=== PATIENT | male | born 1960 | race Caucasian/White ===

== ENCOUNTER → 2017-09-13 13:39 | Outpatient (POV) | payer MEDICARE, MEDICAID, SELFPAY | PROVIDERS: PCP Internal Medicine Adolescent Medicine; Visit Provider Internal Medicine Nephrology | DX: Z00.00 Encounter for general adult medical examination without abnormal findings (principal) ==

== ENCOUNTER → 2017-12-30 12:46 | Outpatient (POV) | payer MEDICARE, MEDICAID, SELFPAY | PROVIDERS: PCP Internal Medicine Adolescent Medicine; Visit Provider Internal Medicine Nephrology | DX: Z00.00 Encounter for general adult medical examination without abnormal findings (principal) ==

== ENCOUNTER → 2018-03-31 15:34 | Outpatient (POV) | payer MEDICARE, MEDICAID, SELFPAY | PROVIDERS: PCP Internal Medicine Adolescent Medicine; Visit Provider Internal Medicine Nephrology | DX: Z00.00 Encounter for general adult medical examination without abnormal findings (principal) ==

== ENCOUNTER → 2018-07-04 16:18 | Outpatient (CLI) | payer MEDICARE, MEDICAID, SELFPAY ==
--- NOTE | 2018-07-05 11:07 | XR_ITS ---
XR foot wt bearing LT 3V HISTORY: Diabetic ulcers second through fifth toes ITS.REASON: Diabetic Ulcer of Toe ORDERING PHYSICIAN: Meghna Green DPM PATIENT AGE: 57 years COMPARISON: None FINDINGS: There is bandage artifact overlying the third fourth and fifth toes. On the oblique view there is some subtle decreased density at the tuft of the distal phalanx of the third third toe. On the AP view there is decreased density of the tuft of the distal phalanx of the fifth toe. Cannot exclude a possibility of erosive change from osteomyelitis. MRI may be of further value. The bandage artifact also somewhat obscure fine detail in these areas. No fracture or dislocation. No soft tissue gas or other significant anomaly. IMPRESSION: Subtle decreased attenuation at the tuft of the distal phalanx of the fifth toe and third toe. Cannot exclude the possibility of osteomyelitis. MRI may be of further value if clinically warranted
[2018-07-05 12:24] LABS: Basophils # 0.1 K/mm3 (0-0.2); Eosinophils # 0.3 K/mm3 (0.0-0.4); Eosinophils % 3.8 % (0.1-12.0); Hematocrit 37.1 % (42.0-52.0); Hemoglobin 12.4 g/dL (14.1-18.0); Lymphocytes # 2.3 K/mm3 (0.7-4.5); Lymphocytes % 33.2 % (10-50); Mean Corpuscular HGB Conc 33.4 g/dL (31.8-35.4); Mean Corpuscular Volume 83.9 fl (80-94); Mean Platelet Volume 8.3 fl (7.4-10.4); Monocytes # 0.5 K/mm3 (0.1-1.0); Monocytes % 7.3 % (1.7-9.3); Neutrophils # 3.7 K/mm3 (1.8-7.8); Neutrophils % 54.6 % (37.0-80.0); Platelet Count 185 K/mm3 (142-424); Red Blood Count 4.43 M/mm3 (4.60-6.20); Red Cell Distribution Width 13.6 % (11.5-17.5); White Blood Count 6.8 K/mm3 (4.8-10.8)
[2018-07-05 13:14] LABS: Hemoglobin A1C 7.7 % (0.0-7.0)
[2018-07-05 13:16] LABS: Alanine Aminotransferase 31 U/L (12-78); Albumin Level 3.5 gm/dL (3.4-5.0); Albumin/Globulin Ratio 1.1 (1.1-1.8); Alkaline Phosphatase 131 U/L (46-116); Anion Gap 13.3 mEq/L (5-15); Aspartate Amino Transferase 23 U/L (15-37); Bilirubin,Total 0.2 mg/dL (0.2-1.0); Blood Urea Nitrogen 41 mg/dL (7-18); C-Reactive Protein 0.9 mg/L (0.0-0.9); Calcium 8.6 mg/dL (8.5-10.1); Carbon Dioxide 29 mmol/L (21.0-32.0); Chloride 102 mmol/L (98-107); Creatinine,Serum 2.29 mg/dL (0.70-1.30); Estimated Glomerular Filt Rate 29 ml/min (>60); GFR (African American) 36 ML/MIN (>60); Globulin 3.2 gm/dl (1.3-3.2); Glucose 91 mg/dL (74-106); Potassium 4.3 mmoL/L (3.5-5.1); Sodium 140 mmol/L (136-145); Total Protein,Serum 6.7 gm/dL (6.4-8.2)
[2018-07-05 13:53] LABS: Erythrocyte Sedimentation Rate 20 mm/hr (0-20)
== END ==
LOC: LAB 07-06 16:25 → LAB.DROPOF 07-07 08:14 → LAB 07-07 08:15
PROVIDERS: PCP Internal Medicine Adolescent Medicine; Visit Provider Podiatrist
DX: E11.621 Type 2 diabetes mellitus with foot ulcer (principal); L97.529 Non-pressure chronic ulcer of other part of left foot with unspecified severity; L03.90 Cellulitis, unspecified
CPT/HCPCS: 36415; 73630; 80053; 83036; 85025; 85651; 86140; 87070; 87205

== ENCOUNTER → 2018-10-10 12:55 | Outpatient (POV) | payer MEDICARE, MEDICAID, SELFPAY | PROVIDERS: Visit Provider Internal Medicine Nephrology | DX: Z00.00 Encounter for general adult medical examination without abnormal findings (principal) ==

== ENCOUNTER → 2020-08-14 12:44 | Outpatient (CLI) | payer MEDICARE, MEDICAID, SELFPAY ==
--- NOTE | 2020-08-14 12:53 | XR_ITS ---
PROCEDURE: XR FOOT WT BEARING LT 3V CLINICAL INDICATION: diabetic ulcer Diabetic ulcer on the great toe, pain and swelling COMPARISON: CR FTR3 FOOT-RT-3 VIEWS from 06/08/2013 CR FTR3 FOOT-RT-3 VIEWS from 06/12/2013 CR [id number] XR foot wt bearing LT 3V from 07/05/2018 FINDINGS: No fracture or dislocation. No lytic or blastic change. There is normal mineralization. Pes planus with mild osteoarthritic changes of the midfoot. Bandage artifact is present at the great toe. No obvious destructive process evident. Other findings:None. IMPRESSION: As above, no acute finding Dictated by: Rohan Nelson MD 08/14/2020 13:25 Rohan Nelson MD in [place] 08/14/2020 13:25
[2020-08-14 13:34] LABS: Basophils # 0.1 K/mm3 (0-0.2); Basophils % 0.5 % (0.1-2.0); Eosinophils # 0.2 K/mm3 (0.0-0.4); Eosinophils % 1.5 % (0.1-12.0); Hematocrit 35.9 % (42.0-52.0); Hemoglobin 12.7 g/dL (14.1-18.0); Lymphocytes # 1.6 K/mm3 (0.7-4.5); Lymphocytes % 13.8 % (10-50); Mean Corpuscular HGB Conc 35.3 g/dL (31.8-35.4); Mean Corpuscular Hemoglobin 30.5 pg (27.0-31.2); Mean Corpuscular Volume 86.4 fl (80-94); Mean Platelet Volume 9.2 fl (7.4-10.4); Monocytes # 1.2 K/mm3 (0.1-1.0); Monocytes % 10.3 % (1.7-9.3); Neutrophils # 8.3 K/mm3 (1.8-7.8); Neutrophils % 73.8 % (37.0-80.0); Platelet Count 214 K/mm3 (142-424); Red Blood Count 4.16 M/mm3 (4.60-6.20); Red Cell Distribution Width 14.1 % (11.5-17.5); White Blood Count 11.2 K/mm3 (4.8-10.8)
[2020-08-14 14:23] LABS: Chloride 92 mmol/L (98-107); Potassium 3.8 mmoL/L (3.5-5.1); Sodium 129 mmol/L (136-145)
[2020-08-14 14:26] LABS: Alanine Aminotransferase 22 U/L (12-78); Albumin Level 3.7 g/dl (3.5-5.0); Albumin/Globulin Ratio 1.3 (1.1-1.8); Alkaline Phosphatase 103 U/L (38-126); Anion Gap 14.8 mEq/L (5-15); Aspartate Amino Transferase 35 U/L (17-59); Bilirubin,Total 0.6 mg/dl (0.2-1.3); Calcium 8.8 mg/dl (8.4-10.2); Carbon Dioxide 26 mmol/L (22.0-30.0); Estimated Glomerular Filt Rate 17 ml/min (>60); GFR (African American) 21 ML/MIN (>60); Globulin 2.9 g/dL (1.3-3.2); Glucose 206 mg/dl (74-100); Total Protein,Serum 6.6 g/dl (6.3-8.2)
[2020-08-14 14:33] LABS: C-Reactive Protein 262.4 mg/L (0-4)
[2020-08-14 14:38] LABS: Blood Urea Nitrogen 80 mg/dl (9-20)
[2020-08-14 14:52] LABS: Erythrocyte Sedimentation Rate 101 mm/hr (0-20)
== END ==
PROVIDERS: Visit Provider Nurse Practitioner
DX: G62.9 Polyneuropathy, unspecified; E08.621 Diabetes mellitus due to underlying condition with foot ulcer; Z79.4 Long term (current) use of insulin
CPT/HCPCS: 36415; 73630; 80053; 85025; 85651; 86140; 87070; 87077; 87186; 87205

== ENCOUNTER 2020-08-22 12:32 | Inpatient (IN) | payer MEDICARE, OTHER, SELFPAY ==
[2020-08-22] VITALS (20 sets, daily range): BP systolic 100–157; BP diastolic 49–85; PULSE 63–97; RESP 16–18; TEMP 36.3–43; O2SAT 96–100; BMI 34.9
--- NOTE | 2020-08-22 12:44 | PC.NURSE ---
Pt arrived to floor at this time.
--- NOTE | 2020-08-22 12:50 | US_ITS ---
APPROVED REPORT Exam Type: Ankle to Brachial Index Economic Consultant: Elsy Sweeney RCS, RVS Indications Non-healing Ulcer: Risk Factors History of PAD: Right Hypertension TIA/CVA History Diabetes Pressures/Indices Right Indices Left Indices Brachial 156.00 mmHg Brachial 156.00 mmHg Low Thigh 180.00 mmHg 1.15 Low Thigh 170.00 mmHg 1.09 Calf Calf 91.00 mmHg 0.58 Ankle(PT) Ankle(PT) 80.00 mmHg 0.51 Ankle(DP) Ankle(DP) 124.00 mmHg 0.79 Digit Digit 41.00 mmHg 0.26 Findings RT Thigh brachial index=1.15 LT RUY=0.79 Rt BKN LT TPI=0.26 Diminished weakened pulses in Left BUSINESS QUALITY ASSURANCE ANALYST and DPA Conclusion RT Thigh brachial index=1.15 LT RUY=0.79 Rt BKN LT TPI=0.26 Diminished weakened pulses in Left BUSINESS QUALITY ASSURANCE ANALYST and DPA Moderate arterial disease on the left Electronically signed by : Rohan Nelson MD 08/22/2020 18:49:39
--- NOTE | 2020-08-22 12:51 | XR_ITS ---
PROCEDURE: XR FOOT LT MIN 3V CLINICAL INDICATION: LF gas gangrene COMPARISON: CR FTR3 FOOT-RT-3 VIEWS from 06/08/2013 CR FTR3 FOOT-RT-3 VIEWS from 06/12/2013 CR FTWBL3 XR foot wt bearing LT 3V from 07/05/2018 CR XR FOOT WT BEARING LT 3V from 08/14/2020 FINDINGS: No fracture or dislocation. No lytic or blastic change. There is normal mineralization. The joint spaces are well-preserved. No significant degenerative/arthritic changes. No erosive changes evident. Other findings:Soft tissue swelling is present of the great toe. No soft tissue gas identified. No bony erosive change identified. IMPRESSION: Soft tissue swelling otherwise negative Dictated by: Rhoan Nelson MD 08/22/2020 14:46 Rohan Nelson MD in [place] 08/22/2020 14:46
--- NOTE | 2020-08-22 12:52 | XR_ITS ---
PROCEDURE: XR CHEST PORTABLE CLINICAL HISTORY: Pre op Cough COMPARISON: CR CXR CHEST(2 VIEWS-NOT PORTABLE) from 06/14/2013 CR CXR CHEST(2 VIEWS-NOT PORTABLE) from 12/01/2014 FINDINGS: Mild cardiomegaly without failure. Minimal nodularity noted in the right lung base and may be related to summation artifact from the overlying rib and vessel. Upright PA and lateral chest may confirm. The remaining lungs are clear. No acute bony abnormalities. IMPRESSION: Borderline cardiomegaly with nonspecific nodular opacity in the right lung base Dictated by: Rohan Nelson MD 08/22/2020 14:44 Rohan Nelson MD in [place] 08/22/2020 14:44
--- NOTE | 2020-08-22 12:59 | HMH.ORTHOCON ---
*Admission Date: 08/22/20 *Reason for consult:: LLE cellulitis, gas gangrene *History of present illness: Patient is a 59-year-old diabetic male who presented to the podiatry clinic today for follow-up for left great toe ulcer. He states he had the foot Wednesday in restorationist which led to worsening redness and swelling. Patient states he noticed a small several days ago which has worsened. In the office this morning he had a necrotic malodorous toe with ascending cellulitis from the great toe up to the midcalf. Patient last ate this morning at 10 AM. He reports not feeling well . Discussed admission per PCP Dr. Comer and plan for I&D with hallux amputation today. [facility] History I have reviewed the patient's past medical history: Yes Medical History: Reports:: Cerebrovascular Accident, Diabetes Mellitus Type 2, Hypertension *Have you ever received a pneumonia vaccine?: No *Have you received a flu vaccine this season?: No Other Medical History: Reports: Sinus Problems Other Surgeries: Yes: No Previous Surgery, Colonoscopy Amputation: Yes (Right BKA 4 years ago ) Fractures: No - *Social History Smoking Status: Never smoker Alcohol Intake: never Alcohol Intake Frequency:: other Substance Use Type: denies use *Occupational Status:: retired *Travel in the last 8 weeks: None Family Hx:: Diabetes, Heart Attack, Hypertension, Cancer Review of Systems - Review of Systems Review of systems:: pertinent systems reviewed and negative unless documented below - Constitutional Reports fatigue, Reports malaise - Eyes Denies blind spots - ENT Denies abnormal hearing - *Cardiovascular Reports leg swelling, Denies chest pain, Denies shortness of breath - *Respiratory Denies shortness of breath - *Gastrointestinal Reports nausea, Denies abdominal pain - *Genitourinary Denies difficulty urinating - *Musculoskeletal Reports joint swelling - Integumentary/Breasts Reports hair loss, Reports change in skin color, Reports non-healing lesions, Reports skin ulcer - *Neurologic Reports tingling/numbness/burning sensations - Psychiatric Denies behavioral changes - Hematologic/Lymphatic Reports easy bruising - Allergic/Immunologic Reports GI upset with certain foods Meds Home Medications Medication Instructions Recorded Confirmed Type carvedilol 25 mg tablet 25 mg PO BID 07/04/18 08/22/20 History fluticasone propionate 50 1 spray INTRANASAL DAILY 07/04/18 08/22/20 History mcg/actuation nasal spray,suspension furosemide 40 mg tablet 40 mg PO DAILY 07/04/18 08/22/20 History insulin NPH-regular 70-30 U-100 30 unit SQ DAILY ml 07/04/18 08/22/20 History insulin 100 unit/mL subcutaneous pen losartan 100 mg tablet 100 mg PO DAILY 07/04/18 08/22/20 History lovastatin 20 mg tablet 20 mg PO DAILY 07/04/18 08/22/20 History metolazone 2.5 mg tablet 2.5 mg PO DAILY 07/04/18 08/22/20 History phenytoin sodium extended 100 mg 100 mg PO TID 07/04/18 08/22/20 History capsule dapagliflozin 10 mg tablet 10 mg PO DAILY tab 05/22/20 08/22/20 History insulin detemir U-100 100 unit/mL 24 unit SQ HS ml 05/22/20 08/22/20 History (3 mL) subcutaneous pen verapamil 360 mg 24 hr 360 mg PO DAILY cap 05/22/20 08/22/20 History capsule,extended release clindamycin HCl 300 mg capsule 300 mg PO TID 14 Days #42 cap 08/14/20 08/22/20 Rx ciprofloxacin HCl 500 mg tablet 500 mg PO BID 14 Days #28 tab 08/17/20 08/22/20 Rx Aspirin [Aspirin 81mg EC Tab] 81 mg PO DAILY 08/22/20 History Allergies Allergy/AdvReac Type Severity Reaction Status Date / Time No Known Allergies Allergy Verified 08/22/20 11:35 Exam Vital signs and Labs for Last 24 Hours: Temp Pulse Resp BP Pulse Ox 98.7 F 68 18 132/66 98 08/22/20 12:35 08/22/20 12:35 08/22/20 12:35 08/22/20 12:35 08/22/20 12:35 I & O for Last 24 hours: Intake & Output 08/20/20 08/21/20 08/22/20 08/23/20 11:59 11:59 11:59 11:59 Weight 279 lb 4 oz
--- NOTE | 2020-08-22 13:54 | HMH.HP ---
*Admission Date: 08/22/20 *Chief complaint: Toe cellulitis *History of present illness: 59-year-old white male, who suffers from diabetes, vascular disease, chronic kidney disease, stage IV, and previous right below-knee amputation because of foot cellulitis, who has been following with podiatry clinic over the past couple of weeks because of cellulitis of the left great toe. Unfortunately has not responded to outpatient therapy after a minor injury while walking, and he noted yesterday that a blister on the tip of the toe burst which relieved some of his pressure sensations but he had spreading redness. Seen in podiatry clinic today, felt to have gas gangrene into the great toe and is admitted to hospital for IV antibiotics and resection of the great toe. [facility] History I have reviewed the patient's past medical history: Yes Medical History: Reports:: Cerebrovascular Accident, Diabetes Mellitus Type 2, Hypertension, Renal Insufficiency *Have you ever received a pneumonia vaccine?: No *Have you received a flu vaccine this season?: Yes Other Medical History: Reports: Sinus Problems Comment:: Chronic kidney disease, baseline creatinine 2.5-3 Other Surgeries: Yes: No Previous Surgery, Colonoscopy Amputation: Yes (Right BKA 4 years ago ) Fractures: No - *Social History Smoking Status: Never smoker Alcohol Intake: never Alcohol Intake Frequency:: other Substance Use Type: denies use *Occupational Status:: retired *Travel in the last 8 weeks: None Family Hx:: Diabetes, Heart Attack, Hypertension, Cancer Review of Systems - Review of Systems Review of systems:: pertinent systems reviewed and negative unless documented below Denies cardiac or pulmonary symptoms, denies GI symptoms, reports good urine output. - *Neurologic Reports tingling/numbness/burning sensations, Denies abnormal hearing, Denies behavioral changes Meds Home Medications Medication Instructions Recorded Confirmed Type aspirin 325 mg tablet 325 mg PO DAILY 07/04/18 08/22/20 History carvedilol 25 mg tablet 25 mg PO BID 07/04/18 08/22/20 History fluticasone propionate 50 1 spray INTRANASAL DAILY 07/04/18 08/22/20 History mcg/actuation nasal spray,suspension furosemide 40 mg tablet 40 mg PO DAILY 07/04/18 08/22/20 History insulin NPH-regular 70-30 U-100 30 unit SQ DAILY ml 07/04/18 08/22/20 History insulin 100 unit/mL subcutaneous pen losartan 100 mg tablet 100 mg PO DAILY 07/04/18 08/22/20 History lovastatin 20 mg tablet 20 mg PO DAILY 07/04/18 08/22/20 History metolazone 2.5 mg tablet 2.5 mg PO DAILY 07/04/18 08/22/20 History phenytoin sodium extended 100 mg 100 mg PO TID 07/04/18 08/22/20 History capsule polyethylene glycol 3350 17 PO g 07/04/18 08/22/20 History gram/dose oral powder dapagliflozin 10 mg tablet 10 mg PO tab 05/22/20 08/22/20 History insulin detemir U-100 100 unit/mL 24 unit SQ QHS ml 05/22/20 08/22/20 History (3 mL) subcutaneous pen verapamil 360 mg 24 hr 360 mg PO DAILY cap 05/22/20 08/22/20 History capsule,extended release clindamycin HCl 300 mg capsule 300 mg PO TID 14 Days #42 cap 08/14/20 08/22/20 Rx ciprofloxacin HCl 500 mg tablet 500 mg PO BID 14 Days #28 tab 08/17/20 08/22/20 Rx Allergies Allergy/AdvReac Type Severity Reaction Status Date / Time No Known Allergies Allergy Verified 08/22/20 11:35 Exam Vital signs and Labs for Last 24 Hours: Temp Pulse Resp BP Pulse Ox 98.7 F 68 18 132/66 98 08/22/20 12:35 08/22/20 12:35 08/22/20 12:35 08/22/20 12:35 08/22/20 12:35 I & O for Last 24 hours: Intake & Output 08/20/20 08/21/20 08/22/20 08/23/20 11:59 11:59 11:59 11:59 Weight 279 lb 4 oz - *Routine HEENT Exam Head: Present: normocephalic Eye: Present: PERRL, other (Previously noted right lateral exotropia) ENT: Present: mucous membranes moist - *Routine Neck Exam Present: supple. Absent: lymphadenopathy - *Routine Respiratory Exam Present: CTA bilaterally
[2020-08-22 14:08] LABS: Basophils # 0.1 K/mm3 (0-0.2); Basophils % 0.3 % (0.1-2.0); Eosinophils # 0.3 K/mm3 (0.0-0.4); Eosinophils % 1.4 % (0.1-12.0); Hematocrit 35.1 % (42.0-52.0); Hemoglobin 11.9 g/dL (14.1-18.0); Lymphocytes # 1.9 K/mm3 (0.7-4.5); Lymphocytes % 9.3 % (10-50); Mean Corpuscular Hemoglobin 28.5 pg (27.0-31.2); Mean Platelet Volume 8.6 fl (7.4-10.4); Monocytes % 4.8 % (1.7-9.3); Neutrophils # 16.8 K/mm3 (1.8-7.8); Neutrophils % 84.2 % (37.0-80.0); Platelet Count 389 K/mm3 (142-424); Red Blood Count 4.17 M/mm3 (4.60-6.20); Red Cell Distribution Width 13.5 % (11.5-17.5); White Blood Count 19.9 K/mm3 (4.8-10.8)
[2020-08-22 14:10] LABS: MANUAL DIFFERENTIAL MANUAL DIFFERENTIAL (MANUAL DIFF)
[2020-08-22 14:14] LABS: Chloride 96 mmol/L (98-107)
[2020-08-22 14:15] LABS: Potassium 3.6 mmoL/L (3.5-5.1); Sodium 133 mmol/L (136-145)
[2020-08-22 14:17] LABS: Alanine Aminotransferase 92 U/L (12-78); Alkaline Phosphatase 167 U/L (38-126); Aspartate Amino Transferase 82 U/L (17-59); Bilirubin,Total 0.5 mg/dl (0.2-1.3); Creatinine Clearance Estimated 34 mL/min (50-200); Estimated Glomerular Filt Rate 15 ml/min (>60); GFR (African American) 18 ML/MIN (>60)
[2020-08-22 14:18] LABS: Albumin Level 3.9 g/dl (3.5-5.0); Anion Gap 14.6 mEq/L (5-15); Carbon Dioxide 26 mmol/L (22.0-30.0); Glucose 141 mg/dl (74-100); Total Protein,Serum 7.9 g/dl (6.3-8.2)
[2020-08-22 14:20] LABS: Blood Urea Nitrogen 99 mg/dl (9-20)
--- NOTE | 2020-08-22 14:20 | HMH.PHAVTE ---
[facility] Pharmacy VTE Monitoring - Patient Demographics Admission date: 08/22/20 Report Date: 08/22/20 Time: 14:20 Allergies/Adverse Reactions: Patient Allergies No Known Allergies Allergy (Verified 08/22/20 11:35) Height: 1.91 m Weight: 126.666 kg Patient Problems: Current Active Problems Diabetes mellitus with neuropathy (Acute) Cellulitis of left lower extremity (Acute) Gas gangrene (Acute) Diabetic ulcer of left foot associated with diabetes mellitus due to underlying condition, with fat layer exposed (Acute) - VTE Risk Labs: VTE Related Lab Results Hgb 11.9 g/dL (14.1-18.0) L 08/22/20 13:50 Hct 35.1 % (42.0-52.0) L 08/22/20 13:50 Plt Count 389 K/mm3 (142-424) 08/22/20 13:50 Clinical Trial Participant: No - Prophylaxis VTE Prophylaxis Ordered?: Yes Types of VTE Prophylaxis: IPCS Knee High (UNAFFECTED LEG)
[2020-08-22 14:22] LABS: Hemoglobin A1C 9.8 % (4.0-6.0)
--- NOTE | 2020-08-22 14:22 | ECG_ITS ---
APPROVED REPORT Exam: Resting ECG HR:64 bpm ECG Measurements Heart Rate 64 AXES CO 200 P 22 QRSd 102 QRS -34 QT 444 T 18 QTc 458 Conclusion Normal sinus rhythm Left axis deviation Isolated q in iii Poor r wave progression Abnormal ECG Electronically signed by : Preston Elizabeth, 08/23/2020 18:48:37
[2020-08-22 14:25] LABS: Lymphocytes % 10 % (10-50); Monocytes % 7 % (2-9); Neutrophils % 83 % (42-76); Platelet Estimate Normal; RBC Morphology Normal; Total Cells Counted 100
[2020-08-22 14:30] LABS: Coronavirus 19 IgG Antibody Negative (Negative); Coronavirus 19 IgM Antibody Negative (Negative)
[2020-08-22 14:31] LABS: Erythrocyte Sedimentation Rate > 140 mm/hr (0-20)
--- NOTE | 2020-08-22 15:03 | HMH.PHAINT ---
home medication list completed using list from Dr Elizabeth's office and home pharmacy
--- NOTE | 2020-08-22 15:31 | HMH.ANESCL ---
[facility] Anesthesia Checklist - Patient Identification Patient Identification: Arm Band - Structural Data Admitted From: Inpatient Planned Operative Procedure/s: Left Great Toe Amputation + I&D Consent for Planned Operative Procedure(s) Verified: Yes Verified Documents: Surgical Consent, History and Physical - NPO Status Verified Time NPO: 10:00 (clear liquids) - Additional verifications Anesthesia Reactions: No - Airway Assessment C-Spine Mobility Assessed: Yes (mp2) TMJ Mobility Assessed: Yes Dentition: Edentulous - Neurological Assessment Level of Consciousness: Awake, Alert - Anesthesia Plan Anesthesia Risk discussed: Yes Anesthesia Plan: Verified ASA Class: III Anesthesia Type: General [facility] History I have reviewed the patient's past medical history: Yes Medical History: Reports:: Cerebrovascular Accident, Diabetes Mellitus Type 2, Hypertension, Renal Insufficiency *Have you ever received a pneumonia vaccine?: No *Have you received a flu vaccine this season?: Yes Other Medical History: Reports: Sinus Problems Anesthesia experience/problems:: nac Other Surgeries: Yes: Colonoscopy, Other Amputation: Yes (Right BKA 4 years ago ) Fractures: No - *Social History Smoking Status: Never smoker Alcohol Intake: never Alcohol Intake Frequency:: other Substance Use Type: denies use *Occupational Status:: retired *Travel in the last 8 weeks: None Family Hx:: Diabetes, Heart Attack, Hypertension, Cancer
--- NOTE | 2020-08-22 16:33 | HMH.OPNOTE ---
Date of procedure: 08/22/20 Pre-op Diagnosis:: 1. Left foot gas gangrene 2. Left lower extremity cellulitis 3. Left diabetic great toe ulcer 4. PAD 5. Right BKA Post-op Diagnosis:: Same Procedure performed:: 1. Left foot incision and drainage 2. Left hallux amputation 3. Left 1st metatarsal head resection 4. Left foot deep debridement of non-viable soft tissue 5. Left foot derotational skin flap Surgeon:: Meghna Green DPM Anesthesia: GETA, local (30cc 0.5% marcaine plain) Estimated blood loss (mL): 10 Clinical Note:: RE-OP AMPUTATION/INFECTION: Radiographs of the left foot were reviewed and discussed with the patient. X-rays from 08/14/20 show FINDINGS: No fracture or dislocation. No lytic or blastic change. There is normal mineralization. Pes planus with mild osteoarthritic changes of the midfoot. Bandage artifact is present at the great toe. No obvious destructive process evident. IMPRESSION: As above, no acute finding. We discussed conservative versus surgical treatment options. Conservative treatment options include local wound care, oral and IV antibiotics, change in shoe wear, taping/padding, and off-loading. Conservative care not recommended due to the ascending cellulitis malodor and worsening ulcer with necrotic infection. We discussed surgical intervention for amputation of the left great toe and incision and drainage. Patient understands that there is a chance that the toes can migrate to fill the gap or the foot may change shape after surgery. Patient also understands that they could have wound healing complications including delayed healing and infection. We discussed that if the wound does not heal, it is possible that they may need a more proximal amputation and could result in further loss of digits, loss of partial foot or loss of leg. We discussed the risks and benefits in great detail. Other surgical risks include: prolonged pain and swelling, further infection requiring oral or IV antibiotics, delay in healing of soft tissue or bone, nerve or blood vessel damage, CRPS/RSD, DVT, anesthesia complications, and even . All questions answered. Patient verbalized understanding. Consent obtained. PCP is Dr. Elizabeth who will admit the patient. Wound culture, left toe 08/15/20: Serratia marcescens (patient taking Clindamycin 300 mg TID, Cipro 500 mg BID x 14 days Labs, 08/14/20: wbc 11.2, ESR 101, CRP 262.4, creatinine 3.6, gfr 17, glucose 206 Labs, 08/22/20: wbc 19.9, ESR >140, CRP 269, creatinine 4.10, gfr 15, glucose 141, Ha1c 9.8% Operative findings:: Previous right below-knee amputation. Left foot had gangrenous necrotic changes with skin sloughing and malodor. There was a left hallux distal tip diabetic ulcer. Purulent drainage noted. Ascending cellulitis noted over the dorsal aspect of the foot extending from the great toe to the ankle to the medial calf. There was necrotic thayer tissue noted at the level of the joint. The hallux bone was soft and crumbly. Degenerative changes as well as yellowish-brown color changes to the first metatarsal head. Infection tracking up the extensor tendon. Tendon was thayer with purulence and malodor noted. A total of 15 cc of drainage was expressed. Tracking across the dorsal and plantar foot noted. Most of the infection seems to be concentrated around the first MPJ, medial first metatarsal shaft and in the first interspace. Concern for decreased blood flow and infection. Will need more antibiotic, but concern for kidney disease. Operative note:: On this date and time patient was deemed an appropriate surgical candidate. With informed consent signed, the patient was taken to the operating theater. The patient was positioned supine. General anesthesia was induced. No tourniquet used. The left lower extremity was prepped and draped in normal sterile fashion. Pre-op left great toe and forefoot blocks given with 20 cc 0.5% marcaine plain. Left hallux amputation, foot deep debridement of non-v
--- NOTE | 2020-08-22 16:33 | HMH.ANESI ---
[facility] Anesthesia Record Part I Intake, IV Amount: 300 Estimated blood loss (mL): 5 Urine output (mL): 0 Blood Pressure: 120/57 SaO2: 99 Pulse Rate: 66 Respiratory Rate: 16 Temperature: 97.3 F Patient is:: Drowsy, Stable Stable to PACU at:: 16:25
[2020-08-22 16:41] LABS: POC Glucose,Bedside 125 (70-110)
--- NOTE | 2020-08-22 19:40 | PC.NURSE ---
HE IS AOX4, HAS BEEN IN STABLE CONDITION SINCE ARRIVAL TO THE FLOOR, HAS NO C/O PAIN THUS FAR. NO NEEDS AT THIS TIME.
[2020-08-22 22:12] LABS: POC Glucose,Bedside 180 (70-110)
--- NOTE | 2020-08-23 | CA_ITS ---
APPROVED REPORT EXAM: Comprehensive 2D, Doppler, and color-flow Echocardiogram Tool Carrier: Cristel Khoury CRT Ht: 6 ft 4 in Wt: 285lbs BSA: 2.58 BP: 124/58 mmHg Indications: CVA/TIA, Diabetes, Obesity, Hypertension/HDD 2D Dimensions Aortic Root 3.36 cm LVOT 2.10 cm (M/F) 1.5-2.5 M-Mode Dimensions RVDd 2.61 cm (0.9-2.6) LA Diam 4.11 cm (1.9-4.0) LVDd 5.65 cm (3.5-5.7) Ao Diam 4.36 cm (2.0-3.7) LVDs 3.41 cm (3.5-5.7) IVSd 2.11 cm (0.6-1.1) PWd 0.51 cm (0.6-1.1) EF (Teich) 69.50% FS 39.60% EDV (Teich) 156.80 mL ESV (Teich) 47.80 mL LV Diastology E Decel Time 150.00 (160-240 msec) E/A Ratio 0.91 MED E' 6.50 (< 7 cm/sec) MED A' 6.00 cm/s E'/MED E' Ratio 15.74 (>14) LAT E' 8.90 (<10 cm/sec) LAT A' 8.00 cm/s E/LAT E' Ratio 11.49 (>14) Aortic Valve AO Peak GR. 6.10 mmHg Mitral Valve MV E Max Nikolas. 102.00 (40-130 cm/s) MV A Velocity 113.00 (40-130 cm/s) E/A Ratio 0.91 MV Decel. Time 150.00 (160-240 ms) MV PHT 44.00 ms Pulmonary Valve PV Peak Velocity 63.00 (50-150 cm/s) Tricuspid Valve TR P. Velocity 170.00 cm/s RAP Estimate 10.00 mmHg RVSP 21.60 mmHg Left Ventricle Left atrium is mildly enlarged, left ventricle is normal size, mild concentric left ventricular hypertrophy, visually estimated ejection fraction 55% with no regional wall motion abnormality. Diastolic parameters are inconclusive. Right Ventricle Right atrium and right ventricle are normal size and contractility. Aortic Valve Aortic valve is mildly thickened and fibrosed, there is no aortic stenosis or aortic insufficiency. Mitral Valve Mitral valve is grossly normal, there is mild mitral regurgitation. Tricuspid Valve Tricuspid valve is grossly normal, there is mild tricuspid regurgitation. Tricuspid regurgitation jet velocity is inadequate for calculation of the right ventricular systolic pressure. Pulmonic Valve Pulmonic valve is poorly visualized. Great Vessels Aortic root is normal size. Pericardium No significant pericardial effusion noted. Conclusion 1. Mildly enlarged left atrium, normal left ventricular size, mild concentric left ventricular hypertrophy, visually estimated ejection fraction 55% with no regional wall motion abnormality. Diastolic parameters are inconclusive. 2. Mild mitral and tricuspid regurgitation. 3. No significant pericardial effusion noted. Electronically signed by : Dani Berrios, 08/23/2020 16:19:00
[2020-08-23 04:00] VITALS: BP 115/53; PULSE 68; RESP 16; TEMP 36.9; O2SAT 97
[2020-08-23 05:41] VITALS: BMI 36.3
[2020-08-23 06:27] LABS: POC Glucose,Bedside 355 (70-110)
--- NOTE | 2020-08-23 06:44 | PC.NURSE ---
pt is AxOx4, has rested well t/o shift, has had no complaints of pain this shift, left foot remains elevated on pillow, dressing in place, C/D/I
--- NOTE | 2020-08-23 07:16 | P.PN_ITS ---
[facility] Anesthesia Record Part II Discharge Time: 16:51 Destination: Medical Surgical Department PACU nurse assessment reviewed?: Yes Patient Condition:: Good Anesthesia Complications:: None Swallowing reflex intact?: Yes Cyanosis?: No Blood Pressure: 151/79 Pulse Rate: 71 Temperature: 97.8 F Mental Status: Alert & Oriented Pain level:: 0 Nausea and/or vomitting:: None Intake, IV Amount: 0
[2020-08-23 07:17] VITALS: BP 151/79; PULSE 71; TEMP 36.6
--- NOTE | 2020-08-23 07:25 | HMH.ACPN2 ---
Internal Medicine - PN: Subj *Date: 08/23/20 *Time: 09:21 Interval history: Remained stable overnight. Pain very minimal. Tolerated amputation well. Afebrile. Reviewed labs from this morning, unfortunately kidney function is still significantly impaired. Exam Vital signs and Labs for Last 24 Hours: Temp Pulse Resp BP Pulse Ox 97.8 F 71 16 151/79 H 100 08/23/20 07:17 08/23/20 07:17 08/22/20 23:50 08/23/20 07:17 08/22/20 23:50 Laboratory Results - last 24 hr 08/22/20 13:50: WBC 19.9 H, RBC 4.17 L, Hgb 11.9 L, Hct 35.1 L, MCV 84.0, MCH 28.5, MCHC 34.0, RDW 13.5, Plt Count 389, MPV 8.6, Neut % (Auto) 84.2 H, Lymph % (Auto) 9.3 L, [place] % (Auto) 4.8, Eos % (Auto) 1.4, Baso % (Auto) 0.3, Neut # (Auto) 16.8 H, Lymph # (Auto) 1.9, [place] # (Auto) 1.0, Eos # (Auto) 0.3, Baso # (Auto) 0.1, Total Counted 100, Neutrophils % (Manual) 83 H, Lymphocytes % (Manual) 10, Monocytes % (Manual) 7, Platelet Estimate Normal, RBC Morphology Normal, ESR > 140 H 08/22/20 13:50: Sodium 133 L, Potassium 3.6, Chloride 96 L, Carbon Dioxide 26, Anion Gap 14.6, BUN 99 H, Creatinine 4.10 H, Estimated Creat Clear 34, Estimated GFR 15 L*, Est GFR ( Amer) 18 L*, Glucose 141 H, Calcium 9.0, Total Bilirubin 0.5, AST 82 H, ALT 92 H, Alkaline Phosphatase 167 H, C-Reactive Protein 269.0 H, Total Protein 7.9, Albumin 3.9, Globulin 4.0 H, Albumin/Globulin Ratio 1.0 L 08/22/20 13:50: SARS-CoV-2 IgG Ab (Rapid) Negative, SARS-CoV-2 IgM Ab (Rapid) Negative 08/22/20 13:50: Hemoglobin A1c 9.8 H 08/22/20 16:34: POC Glucose 125 H 08/22/20 21:01: POC Glucose 180 H 08/23/20 06:18: POC Glucose 355 H* I & O for Last 24 hours: Intake & Output 08/20/20 08/21/20 08/22/20 08/23/20 23:59 23:59 23:59 23:59 Intake Total 540 / 540 0 / 0 Output Total 800 / 800 Balance -260 / -260 0 / 0 Weight 126.666 kg 132.619 kg Microbiology Reports for the Last 24 Hours: Microbiology 08/22/20 15:15 Toe,Left Great Gram Stain - Final Narrative: - *Routine HEENT Exam Head: Present: normocephalic Eye: Present: PERRL, other (Previously noted right lateral exotropia) ENT: Present: mucous membranes moist - *Routine Neck Exam Present: supple. Absent: lymphadenopathy - *Routine Respiratory Exam Present: CTA bilaterally - *Routine Cardiovascular Exam Present: RRR - *Routine Abdominal Exam Present: soft, normoactive bowel sounds. Absent: tenderness - *Routine Extremities Exam Present: edema. Absent: cyanosis Comments: Right BKA noted, left foot in post surgical dressing. Leading edge or erythema was marked on leg with marker, has receded at this time - *Routine Skin Exam Present: warm. Absent: rash - *Routine Neurological Exam Present: alert, oriented X3 Assessment and Plan (1) Diabetes mellitus with neuropathy Status: Acute Category: Medical Code(s): E11.40 - Type 2 diabetes mellitus with diabetic neuropathy, unspecified (2) Cellulitis of left lower extremity Status: Acute Category: Medical Code(s): L03.116 - Cellulitis of left lower limb (3) Diabetic ulcer of left foot associated with diabetes mellitus due to underlying condition, with fat layer exposed Status: Acute Qualifiers: Diabetic foot ulcer location: toe Qualified Code(s): E08.621 - Diabetes mellitus due to underlying condition with foot ulcer; L97.522 - Non-pressure chronic ulcer of other part of left foot with fat layer exposed Category: Medical Code(s): E08.621 - Diabetes mellitus due to underlying condition with foot ulcer; L97.522 - Non-pressure chronic ulcer of other part of left foot with fat layer exposed (4) Gas gangrene Status: Acute Category: Medical Code(s): A48.0 - Gas gangrene (5) Acute on chronic kidney failure Status: Acute Qualifiers: Chronic kidney disease stage: stage 4 (severe) Category: Medical Code(s): N17.9 - Acute kidney failure, unspecified; N18.9 - Chronic kidney disease, unspecified (6) Obesity,
[2020-08-23 08:00] VITALS: BP 124/58; PULSE 69; RESP 18; TEMP 36.8; O2SAT 98
[2020-08-23 08:01] LABS: Basophils # 0.1 K/mm3 (0-0.2); Basophils % 0.3 % (0.1-2.0); Eosinophils # 0.1 K/mm3 (0.0-0.4); Eosinophils % 0.5 % (0.1-12.0); Hematocrit 30.3 % (42.0-52.0); Lymphocytes # 1.5 K/mm3 (0.7-4.5); Lymphocytes % 7.8 % (10-50); Mean Corpuscular HGB Conc 33.4 g/dL (31.8-35.4); Mean Corpuscular Volume 86.7 fl (80-94); Mean Platelet Volume 8.6 fl (7.4-10.4); Monocytes # 0.8 K/mm3 (0.1-1.0); Monocytes % 3.8 % (1.7-9.3); Neutrophils # 17.4 K/mm3 (1.8-7.8); Neutrophils % 87.6 % (37.0-80.0); Platelet Count 303 K/mm3 (142-424); Red Cell Distribution Width 13.8 % (11.5-17.5); White Blood Count 19.8 K/mm3 (4.8-10.8)
[2020-08-23 08:04] LABS: MANUAL DIFFERENTIAL MANUAL DIFFERENTIAL (MANUAL DIFF)
[2020-08-23 08:10] LABS: Anion Gap 16.7 mEq/L (5-15); Calcium 8.2 mg/dl (8.4-10.2); Carbon Dioxide 24 mmol/L (22.0-30.0); Chloride 95 mmol/L (98-107); Creatinine Clearance Estimated 29 mL/min (50-200); Estimated Glomerular Filt Rate 12 ml/min (>60); GFR (African American) 14 ML/MIN (>60); Glucose 316 mg/dl (74-100); Potassium 3.7 mmoL/L (3.5-5.1); Sodium 132 mmol/L (136-145)
[2020-08-23 08:18] LABS: Blood Urea Nitrogen 106 mg/dl (9-20)
--- NOTE | 2020-08-23 08:23 | PC.NURSE ---
reported bun and creatnine to
[2020-08-23 08:48] LABS: Erythrocyte Sedimentation Rate > 140 mm/hr (0-20)
[2020-08-23 08:55] LABS: C-Reactive Protein 282.3 mg/L (0-4)
[2020-08-23 09:52] LABS: Lymphocytes % 4 % (10-50); Monocytes % 4 % (2-9); Neutrophils % 92 % (42-76); Platelet Estimate Normal; RBC Morphology Normal; Total Cells Counted 100
[2020-08-23 09:56] LABS: Hemoglobin 10.1 g/dL (14.1-18.0)
--- NOTE | 2020-08-23 10:05 | HMH.CNCARD ---
History of Present Illness Consult date: 08/23/20 Requesting physician: Sanchez Campbell Chief complaint: Cellulitis of the lower left leg Additional Medical History:: 1. Cellulitis of the left lower leg (08/23/20) 2. Abnormal RUY (08/23/20) 3. Uncontrolled diabetes (08/23/20) 4. Peripheral artery disease (08/23/20) a. Abnormal RUY 5. Renal failure (08/23/20) a. Creatinine 5 6. Below the knee amputation Right History of present illness: 59-year-old male admitted to [facility] for cellulitis of the left lower extremity. Cardiology was consulted due to abnormal RUY and perform possible runoff today. Patient did undergo amputation of the left great toe yesterday due to gangrene. Management of this per Dr. Bautista. Patient denies chest pain, tightness or pressure. Patient denies shortness of breath. Swelling noted of the lower extremity. Left foot does have dressing dry and intact. Denies fever. Patient states for 1 week he had been having a low-grade fever at home. Upon admission labs were noted with a creatinine of 4.30. Patient stated that he does have renal failure. Patient states he has been seen by nephrology in [place] but has not seen the skoog machine operator for 1 to 2 years. Patient does seem noncompliant. Patient does have small amounts of urine output. Patient has history of CVA 5 to 6 years ago. No known coronary artery disease or lung disease. Discussed plan of care with Dr. Arroyo and Dr. Morrison. Will defer performing a left lower leg runoff due to elevated creatinine level. Patient is currently receiving antibiotics and this may be increasing his creatinine at this time. Will have patient follow-up in the office in 1 week for evaluation and possibly scheduling runoff at that time. Thank you for letting cardiology participate in the care of this patient. [facility] History I have reviewed the patient's past medical history: Yes Medical History: Reports:: Cerebrovascular Accident, Diabetes Mellitus Type 2, Hypertension, Renal Insufficiency Denies:: Cancer, MRSA *Have you ever received a pneumonia vaccine?: Yes *Have you received a flu vaccine this season?: No Other Medical History: Reports: Sinus Problems Anesthesia experience/problems:: nac Other Surgeries: Yes: No Previous Surgery, Colonoscopy, Other Amputation: Yes (Right BKA 4 years ago ) Fractures: No - *Social History Last grade of school completed: Some college Smoking Status: Never smoker Alcohol Intake: never Alcohol Intake Frequency:: other Substance Use Type: denies use *Occupational Status:: retired Housing: house *Travel in the last 8 weeks: None Family Hx:: Cancer Meds Home Medications Medication Instructions Recorded Confirmed Type carvedilol 25 mg tablet 25 mg PO BID 07/04/18 08/22/20 History fluticasone propionate 50 1 spray INTRANASAL DAILY 07/04/18 08/22/20 History mcg/actuation nasal spray,suspension furosemide 40 mg tablet 40 mg PO DAILY 07/04/18 08/22/20 History losartan 100 mg tablet 100 mg PO DAILY 07/04/18 08/22/20 History lovastatin 20 mg tablet 20 mg PO DAILY 07/04/18 08/22/20 History metolazone 2.5 mg tablet 2.5 mg PO DAILY 07/04/18 08/22/20 History phenytoin sodium extended 100 mg 100 mg PO TID 07/04/18 08/22/20 History capsule dapagliflozin 10 mg tablet 10 mg PO DAILY tab 05/22/20 08/22/20 History insulin detemir U-100 100 unit/mL 24 unit SQ HS ml 05/22/20 08/22/20 History (3 mL) subcutaneous pen verapamil 360 mg 24 hr 360 mg PO DAILY cap 05/22/20 08/22/20 History capsule,extended release clindamycin HCl 300 mg capsule 300 mg PO TID 14 Days #42 cap 08/14/20 08/22/20 Rx ciprofloxacin HCl 500 mg tablet 500 mg PO BID 14 Days #28 tab 08/17/20 08/22/20 Rx Aspirin [Aspirin 81mg EC Tab] 81 mg PO DAILY 08/22/20 08/22/20 History Allergies Allergy/AdvReac Type Severity Reaction Status Date / Time No Known Allergies Allergy Verified 08/22/20 11:35 Exam Vital signs and Labs for Last 24 Jaime
--- NOTE | 2020-08-23 10:13 | HMH.ORTHPN ---
Subjective Date: 08/23/20 Time: 09:30 Principal diagnosis: LLE cellulitis, gas gangrene Interval history: Patient is resting comfortably in the recliner bedside. He reports feeling much better than yesterday last week . He denies N/V, F/C. Patient reports no pain to the left foot. PN: Obj Ex Vital signs: Temp Pulse Resp BP Pulse Ox 98.3 F 69 18 124/58 L 98 08/23/20 08:00 08/23/20 08:00 08/23/20 08:00 08/23/20 08:00 08/23/20 08:00 - Constitutional no acute distress - Routine HEENT Exam Head: Present: normocephalic - Routine Neck Exam Present: supple - Routine Respiratory Exam Absent: respiratory distress - Routine Cardiovascular Exam Present: RRR - Routine Abdominal Exam Present: soft, obese - Routine Extremities Exam Present: edema, amputation (R BKA, L hallux, met head ) - Detailed Lower Extremity Exam Top foot image: 1 - Left foot edema and erythema has greatly improved from yesterday. There are sutures noted to the dorsal and medial left foot. Area noted over the dorsal first MPJ and medial foot open to drain. No purulence expressed. Foot was flushed with saline at the bedside and explored. No evidence of deep infection or purulent pocket noted. Mild pain over the first distal interspace with palpation. No pain over the amputation site. CFT delayed and pulses are weakly palpable. Motor function and light touch sensation at baseline. No calf or thigh pain noted bilaterally. - Routine Skin Exam Present: erythema (improved to LLE), dry, wounds. Absent: gangrene - Routine Psychiatric Exam Present: normal affect Progress Note: A&P (1) Diabetes mellitus with neuropathy Status: Acute (2) Cellulitis of left lower extremity Status: Acute (3) Diabetic ulcer of left foot associated with diabetes mellitus due to underlying condition, with fat layer exposed Status: Acute (4) Gas gangrene Status: Acute (5) Acute on chronic kidney failure Status: Acute (6) Obesity, Class II, BMI 35-39.9 Status: Chronic Assessment and Plan for All Diagnoses:: Sx: 08/22/20, S/p foot I&D, hallux amputation, 1st metatarsal head resection, deep foot debridement of non-viable soft tissue, foot derotational skin flap POD # 1 Wound culture, left toe 08/15/20: Serratia marcescens (patient taking Clindamycin 300 mg TID, Cipro 500 mg BID x 14 days Labs, 08/14/20: wbc 11.2, ESR 101, CRP 262.4, creatinine 3.6, gfr 17, glucose 206 Labs, 08/22/20: wbc 19.9, ESR >140, CRP 269, creatinine 4.10, gfr 15, glucose 141, Ha1c 9.8% Labs, 08/23/20: wbc 19.8, ESR >140, CRP 283, creatinine 5.0, gfr 12, bun 106, glucose 316 For all the edema and erythema to the left foot extremity has dramatically improved from yesterday. There is some erythema over the first MPJ dorsally. Sutures are clean dry and intact. Overall the skin is macerated to the incision site. There are 2 openings noted. Wound flushed with saline. It was explored with pickups, hemostat and no purulent pockets is noted. No malodor noted. No necrotic or gangrenous tissue noted. The proximal aspect of the dorsal incision was a little dusky but no gangrene. Betadine soaked quarter inch iodoform packing inserted to the 2 openings. Betadine soaked 4x4's, dry gauze, venu/kerlix and Tu was applied to the left foot. Discussed plan of care with Cardiology: Dr. Arroyo and Danielle. Patient ABIs were abnormal and he has decreased below knee and PT flow. I do think he is getting some collateralization via the DP. Would recommend revascular in future. I do not think he is urgent critical limb ischemia PAD. If contrast will be utilized for revascularization, I'd prob recommend holding off until kidneys improve. The infection clinically appears much better but concerned if he is not on the next antibiotics then it could worsen and he is high risk due to the diabetes, PAD, CKD, no
--- NOTE | 2020-08-23 11:00 | HMH.PHACONS ---
- Pharmacy Consult Date: 08/23/20 Time: 11:00 Referring provider: DR. SHELBY Reason for Consult:: VANCOMYCIN DOSING Allergies and ADEs:: Allergies Allergy/AdvReac Type Severity Reaction Status Date / Time No Known Allergies Allergy Verified 08/22/20 11:35 Home Medications:: Home Medications Medication Instructions Recorded Confirmed Type carvedilol 25 mg tablet 25 mg PO BID 07/04/18 08/22/20 History fluticasone propionate 50 1 spray INTRANASAL DAILY 07/04/18 08/22/20 History mcg/actuation nasal spray,suspension furosemide 40 mg tablet 40 mg PO DAILY 07/04/18 08/22/20 History losartan 100 mg tablet 100 mg PO DAILY 07/04/18 08/22/20 History lovastatin 20 mg tablet 20 mg PO DAILY 07/04/18 08/22/20 History metolazone 2.5 mg tablet 2.5 mg PO DAILY 07/04/18 08/22/20 History phenytoin sodium extended 100 mg 100 mg PO TID 07/04/18 08/22/20 History capsule dapagliflozin 10 mg tablet 10 mg PO DAILY tab 05/22/20 08/22/20 History insulin detemir U-100 100 unit/mL 24 unit SQ HS ml 05/22/20 08/22/20 History (3 mL) subcutaneous pen verapamil 360 mg 24 hr 360 mg PO DAILY cap 05/22/20 08/22/20 History capsule,extended release clindamycin HCl 300 mg capsule 300 mg PO TID 14 Days #42 cap 08/14/20 08/22/20 Rx ciprofloxacin HCl 500 mg tablet 500 mg PO BID 14 Days #28 tab 08/17/20 08/22/20 Rx Aspirin [Aspirin 81mg EC Tab] 81 mg PO DAILY 08/22/20 08/22/20 History Height: 1.91 m Weight: 132.619 kg Laboratory Results:: Laboratory Results - last 24 hr 08/22/20 13:50: WBC 19.9 H, RBC 4.17 L, Hgb 11.9 L, Hct 35.1 L, MCV 84.0, MCH 28.5, MCHC 34.0, RDW 13.5, Plt Count 389, MPV 8.6, Neut % (Auto) 84.2 H, Lymph % (Auto) 9.3 L, [place] % (Auto) 4.8, Eos % (Auto) 1.4, Baso % (Auto) 0.3, Neut # (Auto) 16.8 H, Lymph # (Auto) 1.9, [place] # (Auto) 1.0, Eos # (Auto) 0.3, Baso # (Auto) 0.1, Total Counted 100, Neutrophils % (Manual) 83 H, Lymphocytes % (Manual) 10, Monocytes % (Manual) 7, Platelet Estimate Normal, RBC Morphology Normal, ESR > 140 H 08/22/20 13:50: Sodium 133 L, Potassium 3.6, Chloride 96 L, Carbon Dioxide 26, Anion Gap 14.6, BUN 99 H, Creatinine 4.10 H, Estimated Creat Clear 34, Estimated GFR 15 L*, Est GFR ( Amer) 18 L*, Glucose 141 H, Calcium 9.0, Total Bilirubin 0.5, AST 82 H, ALT 92 H, Alkaline Phosphatase 167 H, C-Reactive Protein 269.0 H, Total Protein 7.9, Albumin 3.9, Globulin 4.0 H, Albumin/Globulin Ratio 1.0 L 08/22/20 13:50: SARS-CoV-2 IgG Ab (Rapid) Negative, SARS-CoV-2 IgM Ab (Rapid) Negative 08/22/20 13:50: Hemoglobin A1c 9.8 H 08/22/20 16:34: POC Glucose 125 H 08/22/20 21:01: POC Glucose 180 H 08/23/20 06:18: POC Glucose 355 H* 08/23/20 07:24: WBC 19.8 H, RBC 3.50 L, Hgb 10.1 L D, Hct 30.3 L, MCV 86.7, MCH 29.0, MCHC 33.4, RDW 13.8, Plt Count 303, MPV 8.6, Neut % (Auto) 87.6 H, Lymph % (Auto) 7.8 L, [place] % (Auto) 3.8, Eos % (Auto) 0.5, Baso % (Auto) 0.3, Neut # (Auto) 17.4 H, Lymph # (Auto) 1.5, [place] # (Auto) 0.8, Eos # (Auto) 0.1, Baso # (Auto) 0.1, Total Counted 100, Neutrophils % (Manual) 92 H, Lymphocytes % (Manual) 4 L, Monocytes % (Manual) 4, Platelet Estimate Normal, RBC Morphology Normal 08/23/20 07:24: Sodium 132 L, Potassium 3.7, Chloride 95 L, Carbon Dioxide 24, Anion Gap 16.7 H, BUN 106 H*, Creatinine 5.00 H D, Estimated Creat Clear 29, Estimated GFR 12 L*, Est GFR ( Amer) 14 L* D, Glucose 316 H D, Calcium 8.2 L 08/23/20 07:24: ESR > 140 H 08/23/20 07:24: C-Reactive Protein 282.3 H Medical History: Reports:: Cerebrovascular Accident, Diabetes Mellitus Type 2, Hypertension, Renal Insufficiency Denies:: Cancer, MRSA Assessment and Plan (1) Diabetes mellitus with neuropathy Status: Acute Category: Medical Code(s): E11.40 - Type 2 diabetes mellitus with diabetic neuropathy, unspecified (2) Cellulitis of left lower extremity Status: Acute Category: Medical Code(s): L03.116 - Cellulitis of left lower limb (3) Diabetic ulcer of left foot associated with diabetes mellitus due to und
[2020-08-23 12:00] VITALS: BP 145/59; PULSE 60; RESP 18; TEMP 36.4; O2SAT 95
[2020-08-23 12:07] LABS: POC Glucose,Bedside 264 (70-110)
[2020-08-23 16:00] VITALS: BP 122/48; PULSE 63; RESP 18; TEMP 36.9; O2SAT 99
[2020-08-23 16:38] LABS: Chloride 96 mmol/L (98-107); Potassium 3.5 mmoL/L (3.5-5.1); Sodium 132 mmol/L (136-145)
[2020-08-23 16:41] LABS: Anion Gap 15.5 mEq/L (5-15); Carbon Dioxide 24 mmol/L (22.0-30.0); Creatinine Clearance Estimated 30 mL/min (50-200); Estimated Glomerular Filt Rate 12 ml/min (>60); GFR (African American) 15 ML/MIN (>60)
[2020-08-23 16:42] LABS: Calcium 8.1 mg/dl (8.4-10.2); Glucose 263 mg/dl (74-100)
[2020-08-23 16:48] LABS: Blood Urea Nitrogen 107 mg/dl (9-20)
--- NOTE | 2020-08-23 17:31 | PC.NURSE ---
dr. fontanez ordered bolus on patient will not allow us to scan in sep. will give a 250ml/hr for 2 hours to make a 500ml bolus. once done per dr dunn switch lr to 125ml/hr. and get a bmp in morning. both are aware of creatnine and bun
[2020-08-23 18:50] LABS: POC Glucose,Bedside 255 (70-110)
--- NOTE | 2020-08-23 19:39 | PC.NURSE ---
PATIENT HAS HAD A GOOD DAY. HAS HAD NO COMPLAINTS AT ALL THIS SHIFT. HAS SAT UP IN THE CHAIR. VITALS HAVE BEEN STABLE. NO NEED TO REINFORCE DRESSING OF NOW.
[2020-08-23 20:00] VITALS: BP 124/60; PULSE 63; RESP 20; TEMP 36.4; O2SAT 96
[2020-08-23 20:49] LABS: POC Glucose,Bedside 278 (70-110)
[2020-08-24] VITALS: BP 124/58; PULSE 60; RESP 20; TEMP 36.9; O2SAT 98
[2020-08-24 04:00] VITALS: BP 131/68; PULSE 61; RESP 20; TEMP 36.7; O2SAT 98
[2020-08-24 05:25] LABS: POC Glucose,Bedside 238 (70-110)
[2020-08-24 05:53] VITALS: BMI 35.7
--- NOTE | 2020-08-24 05:58 | PC.NURSE ---
PT HAS SLEPT OFF AND ON THROUGHTOUT THE NIGHT,NOT REQUIRED ANY PAIN MEDICINES THIS SHIFT,NO DRAINAGE TO DRESSING ON LEFT FOOT FROM AMPUTATION OF GREAT TOE,PT CONTINUES TO GET SEVERAL ANTIBIOTICS.FLUIDS WHERE DISCONTINUED,PT SALINE LOCKED.PT URINE THIS MORNING IN URINAL WAS MORE YELLOW AND CLEAR,NOT DARK,FSBS THIS AM WAS 238,WILL GIVE 4 UNITS HUMALOG
[2020-08-24 07:10] LABS: Basophils # 0.1 K/mm3 (0-0.2); Basophils % 0.5 % (0.1-2.0); Eosinophils # 0.4 K/mm3 (0.0-0.4); Eosinophils % 2.7 % (0.1-12.0); Hematocrit 29.8 % (42.0-52.0); Hemoglobin 10.3 g/dL (14.1-18.0); Lymphocytes # 1.6 K/mm3 (0.7-4.5); Lymphocytes % 11.8 % (10-50); Mean Corpuscular HGB Conc 34.4 g/dL (31.8-35.4); Mean Corpuscular Hemoglobin 29.3 pg (27.0-31.2); Mean Corpuscular Volume 85.1 fl (80-94); Mean Platelet Volume 8.2 fl (7.4-10.4); Monocytes # 0.6 K/mm3 (0.1-1.0); Monocytes % 4.3 % (1.7-9.3); Neutrophils # 11.2 K/mm3 (1.8-7.8); Neutrophils % 80.7 % (37.0-80.0); Platelet Count 313 K/mm3 (142-424); Red Cell Distribution Width 13.6 % (11.5-17.5); White Blood Count 13.9 K/mm3 (4.8-10.8)
[2020-08-24 07:38] LABS: Alanine Aminotransferase 73 U/L (12-78); Albumin/Globulin Ratio 0.8 (1.1-1.8); Alkaline Phosphatase 184 U/L (38-126); Anion Gap 17.7 mEq/L (5-15); Aspartate Amino Transferase 59 U/L (17-59); Bilirubin,Total 0.5 mg/dl (0.2-1.3); Calcium 8.3 mg/dl (8.4-10.2); Carbon Dioxide 23 mmol/L (22.0-30.0); Chloride 95 mmol/L (98-107); Creatinine Clearance Estimated 35 mL/min (50-200); Estimated Glomerular Filt Rate 15 ml/min (>60); GFR (African American) 18 ML/MIN (>60); Globulin 3.6 g/dL (1.3-3.2); Glucose 283 mg/dl (74-100); Potassium 3.7 mmoL/L (3.5-5.1); Sodium 132 mmol/L (136-145); Total Protein,Serum 6.6 g/dl (6.3-8.2)
[2020-08-24 08:00] VITALS: BP 152/70; PULSE 66; RESP 19; TEMP 36.5; O2SAT 97
[2020-08-24 08:06] LABS: Blood Urea Nitrogen 102 mg/dl (9-20)
--- NOTE | 2020-08-24 08:29 | HMH.ACPN2 ---
Internal Medicine - PN: Subj *Date: 08/24/20 *Time: 08:29 Interval history: Patient reports that he is feeling better, drinking better, urine output is clearer. He also tells me that in the week before surgery he was at home with a fever and his p.o. intake was severely limited. Exam Vital signs and Labs for Last 24 Hours: Temp Pulse Resp BP Pulse Ox 97.7 F 66 19 152/70 H 97 08/24/20 08:00 08/24/20 08:00 08/24/20 08:00 08/24/20 08:00 08/24/20 08:00 Laboratory Results - last 24 hr 08/23/20 07:24: Hgb 10.1 L D, Total Counted 100, Neutrophils % (Manual) 92 H, Lymphocytes % (Manual) 4 L, Monocytes % (Manual) 4, Platelet Estimate Normal, RBC Morphology Normal 08/23/20 07:24: ESR > 140 H 08/23/20 07:24: C-Reactive Protein 282.3 H 08/23/20 11:23: POC Glucose 264 H 08/23/20 16:23: Sodium 132 L, Potassium 3.5, Chloride 96 L, Carbon Dioxide 24, Anion Gap 15.5 H, BUN 107 H*, Creatinine 4.90 H, Estimated Creat Clear 30, Estimated GFR 12 L*, Est GFR ( Amer) 15 L*, Glucose 263 H, Calcium 8.1 L 08/23/20 17:08: POC Glucose 255 H 08/23/20 20:38: POC Glucose 278 H 08/24/20 05:13: POC Glucose 238 H 08/24/20 06:20: WBC 13.9 H D, RBC 3.50 L, Hgb 10.3 L, Hct 29.8 L, MCV 85.1, MCH 29.3, MCHC 34.4, RDW 13.6, Plt Count 313, MPV 8.2, Neut % (Auto) 80.7 H, Lymph % (Auto) 11.8, [place] % (Auto) 4.3, Eos % (Auto) 2.7, Baso % (Auto) 0.5, Neut # (Auto) 11.2 H, Lymph # (Auto) 1.6, [place] # (Auto) 0.6, Eos # (Auto) 0.4, Baso # (Auto) 0.1 08/24/20 06:20: Sodium 132 L, Potassium 3.7, Chloride 95 L, Carbon Dioxide 23, Anion Gap 17.7 H, BUN 102 H*, Creatinine 4.10 H, Estimated Creat Clear 35, Estimated GFR 15 L*, Est GFR ( Amer) 18 L*, Glucose 283 H, Calcium 8.3 L, Magnesium 2.0, Total Bilirubin 0.5, AST 59 D, ALT 73, Alkaline Phosphatase 184 H, Total Protein 6.6, Albumin 3.0 L, Globulin 3.6 H, Albumin/Globulin Ratio 0.8 L I & O for Last 24 hours: Intake & Output 08/21/20 08/22/20 08/23/20 08/24/20 11:59 11:59 11:59 11:59 Intake Total 960 / 960 1794 / 1794 Output Total 1000 / 1000 4050 / 4050 Balance -40 / -40 -2256 / -2256 Weight 292 lb 6 oz 287 lb 9 oz Microbiology Reports for the Last 24 Hours: Microbiology 08/22/20 15:15 Toe,Left Great Gram Stain - Final 08/22/20 15:15 Toe,Left Great Abscess Culture - Preliminary 08/22/20 15:15 Toe,Left Great Surgical Biopsy Culture - Preliminary Gram Negative Rods 08/22/20 15:15 Toe,Left Great Surgical Biopsy Culture - Preliminary Narrative: Pleasant, talkative, heart rate regular, lungs clear, abdomen soft. Oropharynx clear, neurologic exam intact, extremity exam noted per podiatry Assessment and Plan (1) Diabetes mellitus with neuropathy Status: Acute Category: Medical Code(s): E11.40 - Type 2 diabetes mellitus with diabetic neuropathy, unspecified (2) Cellulitis of left lower extremity Status: Acute Category: Medical Code(s): L03.116 - Cellulitis of left lower limb (3) Diabetic ulcer of left foot associated with diabetes mellitus due to underlying condition, with fat layer exposed Status: Acute Qualifiers: Diabetic foot ulcer location: toe Qualified Code(s): E08.621 - Diabetes mellitus due to underlying condition with foot ulcer; L97.522 - Non-pressure chronic ulcer of other part of left foot with fat layer exposed Category: Medical Code(s): E08.621 - Diabetes mellitus due to underlying condition with foot ulcer; L97.522 - Non-pressure chronic ulcer of other part of left foot with fat layer exposed (4) Gas gangrene Status: Acute Category: Medical Code(s): A48.0 - Gas gangrene (5) Acute on chronic kidney failure Status: Acute Qualifiers: Chronic kidney disease stage: stage 4 (severe) Category: Medical Code(s): N17.9 - Acute kidney failure, unspecified; N18.9 - Chronic kidney disease, unspecified (6) Obesity, Class II, BMI 35-39.9 Status: Chronic Category: Medical Code(s):
[2020-08-24 11:35] LABS: POC Glucose,Bedside 400 (70-110)
[2020-08-24 12:00] VITALS: BP 152/75; PULSE 59; RESP 20; TEMP 36.8; O2SAT 99
[2020-08-24 15:05] LABS: Vancomycin,Trough 11.8 ug/mL (5.0-10.0)
[2020-08-24 16:00] VITALS: BP 137/77; PULSE 73; RESP 16; TEMP 36.7; O2SAT 98
--- NOTE | 2020-08-24 16:11 | HMH.PHACONS ---
- Pharmacy Consult Date: 08/24/20 Time: 16:11 Referring provider: DR. SHELBY Reason for Consult:: VANCOMYCIN TROUGH LEVEL Allergies and ADEs:: Allergies Allergy/AdvReac Type Severity Reaction Status Date / Time No Known Allergies Allergy Verified 08/22/20 11:35 Home Medications:: Home Medications Medication Instructions Recorded Confirmed Type carvedilol 25 mg tablet 25 mg PO BID 07/04/18 08/22/20 History fluticasone propionate 50 1 spray INTRANASAL DAILY 07/04/18 08/22/20 History mcg/actuation nasal spray,suspension furosemide 40 mg tablet 40 mg PO DAILY 07/04/18 08/22/20 History losartan 100 mg tablet 100 mg PO DAILY 07/04/18 08/22/20 History lovastatin 20 mg tablet 20 mg PO DAILY 07/04/18 08/22/20 History metolazone 2.5 mg tablet 2.5 mg PO DAILY 07/04/18 08/22/20 History phenytoin sodium extended 100 mg 100 mg PO TID 07/04/18 08/22/20 History capsule dapagliflozin 10 mg tablet 10 mg PO DAILY tab 05/22/20 08/22/20 History insulin detemir U-100 100 unit/mL 24 unit SQ HS ml 05/22/20 08/22/20 History (3 mL) subcutaneous pen verapamil 360 mg 24 hr 360 mg PO DAILY cap 05/22/20 08/22/20 History capsule,extended release clindamycin HCl 300 mg capsule 300 mg PO TID 14 Days #42 cap 08/14/20 08/22/20 Rx ciprofloxacin HCl 500 mg tablet 500 mg PO BID 14 Days #28 tab 08/17/20 08/22/20 Rx Aspirin [Aspirin 81mg EC Tab] 81 mg PO DAILY 08/22/20 08/22/20 History Height: 1.91 m Weight: 130.436 kg Laboratory Results:: Laboratory Results - last 24 hr 08/23/20 16:23: Sodium 132 L, Potassium 3.5, Chloride 96 L, Carbon Dioxide 24, Anion Gap 15.5 H, BUN 107 H*, Creatinine 4.90 H, Estimated Creat Clear 30, Estimated GFR 12 L*, Est GFR ( Amer) 15 L*, Glucose 263 H, Calcium 8.1 L 08/23/20 17:08: POC Glucose 255 H 08/23/20 20:38: POC Glucose 278 H 08/24/20 05:13: POC Glucose 238 H 08/24/20 06:20: WBC 13.9 H D, RBC 3.50 L, Hgb 10.3 L, Hct 29.8 L, MCV 85.1, MCH 29.3, MCHC 34.4, RDW 13.6, Plt Count 313, MPV 8.2, Neut % (Auto) 80.7 H, Lymph % (Auto) 11.8, Gove % (Auto) 4.3, Eos % (Auto) 2.7, Baso % (Auto) 0.5, Neut # (Auto) 11.2 H, Lymph # (Auto) 1.6, Gove # (Auto) 0.6, Eos # (Auto) 0.4, Baso # (Auto) 0.1 08/24/20 06:20: Sodium 132 L, Potassium 3.7, Chloride 95 L, Carbon Dioxide 23, Anion Gap 17.7 H, BUN 102 H*, Creatinine 4.10 H, Estimated Creat Clear 35, Estimated GFR 15 L*, Est GFR ( Amer) 18 L*, Glucose 283 H, Calcium 8.3 L, Magnesium 2.0, Total Bilirubin 0.5, AST 59 D, ALT 73, Alkaline Phosphatase 184 H, Total Protein 6.6, Albumin 3.0 L, Globulin 3.6 H, Albumin/Globulin Ratio 0.8 L 08/24/20 11:24: POC Glucose 400 H* 08/24/20 14:19: Vancomycin Trough 11.8 H Medical History: Reports:: Cerebrovascular Accident, Diabetes Mellitus Type 2, Hypertension, Renal Insufficiency Denies:: Cancer, MRSA Assessment and Plan (1) Diabetes mellitus with neuropathy Status: Acute Category: Medical Code(s): E11.40 - Type 2 diabetes mellitus with diabetic neuropathy, unspecified (2) Cellulitis of left lower extremity Status: Acute Category: Medical Code(s): L03.116 - Cellulitis of left lower limb (3) Diabetic ulcer of left foot associated with diabetes mellitus due to underlying condition, with fat layer exposed Status: Acute Qualifiers: Diabetic foot ulcer location: toe Qualified Code(s): E08.621 - Diabetes mellitus due to underlying condition with foot ulcer; L97.522 - Non-pressure chronic ulcer of other part of left foot with fat layer exposed Category: Medical Code(s): E08.621 - Diabetes mellitus due to underlying condition with foot ulcer; L97.522 - Non-pressure chronic ulcer of other part of left foot with fat layer exposed (4) Gas gangrene Status: Acute Category: Medical Code(s): A48.0 - Gas gangrene (5) Acute on chronic kidney failure Status: Acute Qualifiers: Chronic kidney disease stage: stage 4 (severe) Category: Medical Code(s): N17.9 - Acute kidney failure, unspec
[2020-08-24 16:20] LABS: POC Glucose,Bedside 354 (70-110)
--- NOTE | 2020-08-24 19:44 | PC.NURSE ---
Alert and oriented x 4. No acute changes. Dsg changed to L great toe and is cdi at this time. VSS.
[2020-08-24 20:00] VITALS: BP 146/67; PULSE 66; RESP 18; TEMP 36.9; O2SAT 97
--- NOTE | 2020-08-24 20:00 | PC.NURSE ---
PT ASSESSED AT THIS TIME. BILATERAL LUNG SOUND CLEAR. EDEMA NOTED TO L LEG. L FOOT DRESSING IS C/D/I. PT DENIES ANY PAIN. 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 PT DENIES ANY FURTHER NEEDS AND IS RESTING IN BED. WILL CONTINUE TO OBSERVE.
[2020-08-24 21:48] LABS: POC Glucose,Bedside 357 (70-110)
[2020-08-25] VITALS: BP 153/65; PULSE 64; RESP 18; TEMP 36.7; O2SAT 98
[2020-08-25 04:00] VITALS: BP 146/66; PULSE 62; RESP 18; TEMP 36.6; O2SAT 98
[2020-08-25 05:00] VITALS: BMI 35.5
--- NOTE | 2020-08-25 05:43 | PC.NURSE ---
PT HAS SLEPT WELL DRUING THE SHIFT. PT CURRENTLY ASLEEP WITH EYES CLOSED. REPIRATIONS EVEN AND UNLABORED. PT ON RA. WILL CONTINUE TO OBSERVE.
[2020-08-25 06:53] LABS: Basophils # 0.1 K/mm3 (0-0.2); Basophils % 0.6 % (0.1-2.0); Eosinophils # 0.4 K/mm3 (0.0-0.4); Eosinophils % 3.4 % (0.1-12.0); Lymphocytes # 1.5 K/mm3 (0.7-4.5); Lymphocytes % 14.7 % (10-50); Mean Corpuscular HGB Conc 33.7 g/dL (31.8-35.4); Mean Corpuscular Hemoglobin 29.4 pg (27.0-31.2); Mean Platelet Volume 8.3 fl (7.4-10.4); Monocytes # 0.4 K/mm3 (0.1-1.0); Monocytes % 4.1 % (1.7-9.3); Neutrophils # 7.9 K/mm3 (1.8-7.8); Neutrophils % 77.2 % (37.0-80.0); Platelet Count 348 K/mm3 (142-424); Red Blood Count 3.39 M/mm3 (4.60-6.20); Red Cell Distribution Width 13.7 % (11.5-17.5); White Blood Count 10.3 K/mm3 (4.8-10.8)
[2020-08-25 06:58] LABS: Hematocrit 29.5 % (42.0-52.0)
[2020-08-25 07:01] LABS: Chloride 102 mmol/L (98-107); Sodium 134 mmol/L (136-145)
[2020-08-25 07:04] LABS: Creatinine Clearance Estimated 42 mL/min (50-200); Estimated Glomerular Filt Rate 19 ml/min (>60); GFR (African American) 22 ML/MIN (>60)
[2020-08-25 07:05] LABS: Calcium 8.2 mg/dl (8.4-10.2); Carbon Dioxide 22 mmol/L (22.0-30.0); Glucose 278 mg/dl (74-100)
[2020-08-25 07:08] LABS: Blood Urea Nitrogen 79 mg/dl (9-20)
--- NOTE | 2020-08-25 07:09 | PC.NURSE ---
LAB CALLED AT THIS TIME STATING BUN IS 79
--- NOTE | 2020-08-25 07:15 | PC.NURSE ---
Rowdy HOLMAN RN GIVEN REPORT AND AWARE OF BUN. NOT CALLED R/T BUN IMPROVING FROM 101 TO 79. JENNI WILL RELAY MESSAGE TO
--- NOTE | 2020-08-25 07:35 | PC.NURSE ---
REPORT GIVEN TO Rowdy HOLMAN RN
[2020-08-25 08:00] VITALS: BP 150/72; PULSE 66; RESP 18; TEMP 36.7; O2SAT 96
--- NOTE | 2020-08-25 08:57 | HMH.ACPN2 ---
Internal Medicine - PN: Subj *Date: 08/25/20 *Time: 08:57 Interval history: Overall patient feels much better this morning. Notes his urine output is improving. No dyspnea, respiratory symptoms or pains. Exam Vital signs and Labs for Last 24 Hours: Temp Pulse Resp BP Pulse Ox 98.0 F 66 18 150/72 H 96 08/25/20 08:00 08/25/20 08:00 08/25/20 08:00 08/25/20 08:00 08/25/20 08:00 Laboratory Results - last 24 hr 08/24/20 11:24: POC Glucose 400 H* 08/24/20 14:19: Vancomycin Trough 11.8 H 08/24/20 16:13: POC Glucose 354 H* 08/24/20 20:25: POC Glucose 357 H* 08/25/20 06:26: WBC 10.3 D, RBC 3.39 L, Hgb 10.0 L, Hct 29.5 L, MCV 87.0, MCH 29.4, MCHC 33.7, RDW 13.7, Plt Count 348, MPV 8.3, Neut % (Auto) 77.2, Lymph % (Auto) 14.7, Wise % (Auto) 4.1, Eos % (Auto) 3.4, Baso % (Auto) 0.6, Neut # (Auto) 7.9 H, Lymph # (Auto) 1.5, Wise # (Auto) 0.4, Eos # (Auto) 0.4, Baso # (Auto) 0.1 08/25/20 06:26: Sodium 134 L, Potassium 4.0, Chloride 102, Carbon Dioxide 22, Anion Gap 14.0, BUN 79 H, Creatinine 3.40 H, Estimated Creat Clear 42, Estimated GFR 19 L*, Est GFR ( Amer) 22 L D, Glucose 278 H, Calcium 8.2 L I & O for Last 24 hours: Intake & Output 08/22/20 08/23/20 08/24/20 08/25/20 11:59 11:59 11:59 11:59 Intake Total 960 / 960 2154 / 2154 3630 / 3630 Output Total 1000 / 1000 4050 / 4050 3600 / 3600 Balance -40 / -40 -1896 / -1896 30 / 30 Weight 292 lb 6 oz 287 lb 9 oz 286 lb 2 oz Microbiology Reports for the Last 24 Hours: Microbiology 08/22/20 15:15 Toe,Left Great Gram Stain - Final 08/22/20 15:15 Toe,Left Great Abscess Culture - Preliminary 08/22/20 15:15 Toe,Left Great Surgical Biopsy Culture - Preliminary 08/22/20 15:15 Toe,Left Great Surgical Biopsy Culture - Final Serratia marcescens Narrative: Toes dressing dry and intact. No worsening edema on the leg. Lungs have good air movement. Heart rate regular. Abdomen soft, good extremity perfusion in the upper extremities. Neurologically intact except for loss of sensation in the leg at baseline Assessment and Plan (1) Diabetes mellitus with neuropathy Status: Acute Category: Medical Code(s): E11.40 - Type 2 diabetes mellitus with diabetic neuropathy, unspecified (2) Cellulitis of left lower extremity Status: Acute Category: Medical Code(s): L03.116 - Cellulitis of left lower limb (3) Diabetic ulcer of left foot associated with diabetes mellitus due to underlying condition, with fat layer exposed Status: Acute Qualifiers: Diabetic foot ulcer location: toe Qualified Code(s): E08.621 - Diabetes mellitus due to underlying condition with foot ulcer; L97.522 - Non-pressure chronic ulcer of other part of left foot with fat layer exposed Category: Medical Code(s): E08.621 - Diabetes mellitus due to underlying condition with foot ulcer; L97.522 - Non-pressure chronic ulcer of other part of left foot with fat layer exposed (4) Gas gangrene Status: Acute Category: Medical Code(s): A48.0 - Gas gangrene (5) Acute on chronic kidney failure Status: Acute Qualifiers: Chronic kidney disease stage: stage 4 (severe) Category: Medical Code(s): N17.9 - Acute kidney failure, unspecified; N18.9 - Chronic kidney disease, unspecified (6) Obesity, Class II, BMI 35-39.9 Status: Chronic Category: Medical Code(s): E66.9 - Obesity, unspecified - Assessment and plan all Dx Assessment and Plan for all problems:: Acute on chronic kidney injury is improving with fluids. No more boluses today, continue 125 mils per hour and reassess BUN/creatinine tomorrow. Culture results reviewed. On good IV antibiotic therapy. Check sed rate and CRP tomorrow, reconsult with podiatry about antibiotic selection, Serratia was in culture but obviously we need to cover for MRSA and Pseudomonas which patient is at high risk for given vascular issues. Possible home tomorrow on p.o.
[2020-08-25 11:45] VITALS: BP 175/75; PULSE 62; RESP 17; TEMP 36.9; O2SAT 97
[2020-08-25 12:26] LABS: POC Glucose,Bedside 273 (70-110)
[2020-08-25 12:26] LABS: POC Glucose,Bedside 286 (70-110)
[2020-08-25 15:47] VITALS: BP 151/62; PULSE 61; RESP 18; TEMP 36.7; O2SAT 98
[2020-08-25 16:21] LABS: POC Glucose,Bedside 262 (70-110)
[2020-08-25 17:00] LABS: Vancomycin,Trough 19.7 ug/mL (5.0-10.0)
--- NOTE | 2020-08-25 18:42 | PC.NURSE ---
Pt is alert and oriented and able to make needs known. RR even and unlabored. Remains on ra at this time. NAD. Meds given per mar. Pt does have a hardened area on R buttock that he states has been there for over a year or so and before he was able to get some black stuff out of it, like a black head. This nurse will pass on to oncoming RN for am rounds to make MD aware and this nurse also informed pt to make Dr. Elizabeth aware in the am as well. CB in reach. Lungs cta, s1,s2. VSS. Dsg changed to LLE. R BKA.
[2020-08-25 20:00] VITALS: BP 155/66; PULSE 63; RESP 18; TEMP 36.8; O2SAT 98
[2020-08-25 21:47] LABS: POC Glucose,Bedside 220 (70-110)
[2020-08-26] VITALS (13 sets, daily range): BP systolic 103–160; BP diastolic 60–79; PULSE 60–82; RESP 16–20; TEMP 36.4–36.8; O2SAT 96–98; BMI 35.6
--- NOTE | 2020-08-26 | IR_ITS ---
APPROVED REPORT Patient Location: Inpatient Talent Development Specialist: MIGDALIA Guan RT (R) PROCEDURES Bilateral selective renal angiography Catheter placement in the left popliteal artery Left popliteal artery selective angiogram with unilateral runoff to the left foot Catheter placed in left superficial femoral artery with selective superficial femoral artery angiography Catheter placed in the left common iliac artery Selective angiogram of the left common iliac with iliofemoral angiography INDICATION Chronic renal failure, Creatinine 2.6 down from 5.0, Renovascular hypertension, Suspect renal artery stenosis, Sibley claudication class , Recent amputation with worsening gangrene Informed consent was obtained prior to the procedure. COMPLICATIONS none Estimated Blood Loss: less than 10 mls TECHNIQUE 1% lidocaine used anesthetize the right groin the right femoral artery was accessed via the Salinger technique and a 4 Lithuanian sheath was placed in the right femoral artery. The JR4 catheter was used to selectively intubate each renal artery. The catheter was then placed into the iliac artery superficial femoral artery and left popliteal artery where selective angiography was performed. Once in the left popliteal artery unilateral runoff to the left foot was performed. The interval stepwise placement of the catheter was performed in order to reduce contrast because the patient's renal disease ANGIOGRAPHIC RESULTS The left renal artery singular and has a proximal 40% stenosis The right renal artery singular normal the left common internal and external iliac arteries are widely patent. The left common femoral artery is widely patent The left superficial femoral artery is widely patent but does have diffuse 30 and 40% stenoses. There is excellent inline flow into a widely patent popliteal artery which has a mid vessel nonflow limiting 50% stenosis. The posterior tibialis artery is proximally occluded the left anterior tibialis artery is a large caliber widely patent vessel with excellent inline flow into the left foot. The peroneal artery is proximally occluded but does fill via a large collateral network from the anterior tibialis artery and a pregeniculate collateral which then provides excellent inline flow into the left foot IMPRESSION Peripheral artery disease as described above Moderate nonflow limiting left renal artery stenosis Peripheral artery disease consistent with small vessel vasculopathy with excellent two-vessel inline flow to the left foot PLAN 1. Xarelto 2.5 twice daily plus aspirin 81 mg daily 2. Wound care 3. Continue medical management Electronically signed by : Terrell Arroyo, 08/26/2020 16:16:25
--- NOTE | 2020-08-26 04:07 | PC.NURSE ---
PT HAS RESTED INTERMITTENTLY THIS SHIFT, PT A&O X 4. NO NEEDS THIS SHIFT, DENIES PAIN. VOIDS PER URINAL. DRESSING TO LEFT FOOT/GREAT TOE C/D/I. REDNESS REMAINS TO LEFT LOWER LEG. IV PATENT. VSS. PT REQUESTS DR. CHANDLER ASSESS HARDENED AREA TO BUTTOCKS. NO FURTHER NEEDS OR CONCERNS. CALL LIGHT WITHIN REACH. WILL CONTINUE TO MONITOR
[2020-08-26 05:36] LABS: POC Glucose,Bedside 203 (70-110)
[2020-08-26 07:17] LABS: Basophils # 0.1 K/mm3 (0-0.2); Basophils % 0.8 % (0.1-2.0); Eosinophils # 0.4 K/mm3 (0.0-0.4); Eosinophils % 4.8 % (0.1-12.0); Hematocrit 31.5 % (42.0-52.0); Hemoglobin 10.4 g/dL (14.1-18.0); Lymphocytes # 1.6 K/mm3 (0.7-4.5); Lymphocytes % 18.3 % (10-50); Mean Corpuscular HGB Conc 33.1 g/dL (31.8-35.4); Mean Corpuscular Volume 87.6 fl (80-94); Mean Platelet Volume 8.2 fl (7.4-10.4); Monocytes # 0.3 K/mm3 (0.1-1.0); Monocytes % 3.8 % (1.7-9.3); Neutrophils # 6.3 K/mm3 (1.8-7.8); Neutrophils % 72.3 % (37.0-80.0); Platelet Count 359 K/mm3 (142-424); Red Blood Count 3.59 M/mm3 (4.60-6.20); Red Cell Distribution Width 13.8 % (11.5-17.5); White Blood Count 8.7 K/mm3 (4.8-10.8)
[2020-08-26 07:27] LABS: Blood Urea Nitrogen 61 mg/dl (9-20); Calcium 8.2 mg/dl (8.4-10.2); Carbon Dioxide 22 mmol/L (22.0-30.0); Chloride 104 mmol/L (98-107); Creatinine Clearance Estimated 55 mL/min (50-200); Estimated Glomerular Filt Rate 25 ml/min (>60); GFR (African American) 31 ML/MIN (>60); Glucose 203 mg/dl (74-100); Sodium 136 mmol/L (136-145)
--- NOTE | 2020-08-26 07:40 | PC.NURSE ---
ASSESSMENT PERFORMED AT THIS TIME. BILATERAL LUNG SOUND CLEAR. GENERALIZED EDEMA NOTED TO LLE WITH SOME CELLULITIS. PT DENIES ANY PAIN AT THIS TIME. BKA NOTED TO RLE. GREAT TOE AMPUTATION ON L FOOT BETADINE 4X4S AND JAMARCUS BANDAGE DRESSING WILL CONTINUE TO OBSERVE.
--- NOTE | 2020-08-26 08:00 | PC.NURSE ---
June WILSON APRN & DR. COSTA AT BEDSIDE COMPLETING DRESSING CHANGE. DR. COSTA WANTS TO DO SURGERY LATER TODAY FOR DEBRIDEMENT.
--- NOTE | 2020-08-26 08:15 | PC.NURSE ---
DR. COSTA AT BEDSIDE GONE OVER SURGERY WITH PT. QUESTIONS ENCOURAGED AND ANSWERED. PT VU AND SIGNED CONSENT AT THIS TIME
--- NOTE | 2020-08-26 08:19 | HMH.ORTHPN ---
Subjective Date: 08/26/20 Time: 08:00 Principal diagnosis: LLE cellulitis, gas gangrene Interval history: Patient is resting comfortably at the bedside today. He reports having an appetite. He denies nausea vomiting, fever chills, shortness of breath or chest pain. He does report some decreased pain to the left foot. PN: Obj Ex Vital signs: Temp Pulse Resp BP Pulse Ox 98.3 F 66 18 145/65 H 96 08/26/20 03:55 08/26/20 03:55 08/26/20 03:55 08/26/20 03:55 08/26/20 03:55 - Constitutional no acute distress - Routine HEENT Exam Head: Present: normocephalic Eye: Present: EOMI ENT: Present: mucous membranes moist - Routine Neck Exam Present: supple - Routine Extremities Exam Present: amputation (R BKA, L hallux). Absent: calf tenderness - Detailed Lower Extremity Exam Top foot image: 1 - Localized edema and erythema has improved since surgery. Sutures are clean dry and intact to the medial dorsal and medial first MPJ. 2 openings noted. The skin is dusky. Maceration noted along the incision site. No purulence expressed. Serosanguineous drainage noted from the medial incision. Pain noted to the first interspace, decreased from before surgery. Decreased pulses and light touch sensation. Progress Note: A&P (1) Diabetes mellitus with neuropathy Status: Acute (2) Cellulitis of left lower extremity Status: Acute (3) Diabetic ulcer of left foot associated with diabetes mellitus due to underlying condition, with fat layer exposed Status: Acute (4) Gas gangrene Status: Acute (5) Acute on chronic kidney failure Status: Acute (6) Obesity, Class II, BMI 35-39.9 Status: Chronic Assessment and Plan for All Diagnoses:: Sx: 08/22/20, S/p foot I&D, hallux amputation, 1st metatarsal head resection, deep foot debridement of non-viable soft tissue, foot derotational skin flap POD # 4 Wound culture, left toe 08/15/20: Serratia marcescens (patient taking Clindamycin 300 mg TID, Cipro 500 mg BID x 14 days Labs, 08/14/20: wbc 11.2, ESR 101, CRP 262.4, creatinine 3.6, gfr 17, glucose 206 Labs, 08/22/20: wbc 19.9, ESR >140, CRP 269, creatinine 4.10, gfr 15, glucose 141, Ha1c 9.8% Labs, 08/23/20: wbc 19.8, ESR >140, CRP 283, creatinine 5.0, gfr 12, bun 106, glucose 316 Labs, 08/26/20: wbc 8.7, crp 107, creatinine 2.6, bun 61, glucose 203, vanco trough 19.7 08/22/20, Intra-op left foot deep wound culture: Serratia marcescens Intra-op left hallux bone culture: GPC Left hallux bone pathology: pending Left first metatarsal margin bone culture, bone pathology: pending The edema and erythema to the left foot extremity has improved since surgery. There is still some erythema over the first MPJ dorsally. Sutures are clean dry and intact. Overall the skin is macerated to the incision site. There are 2 openings noted. Wound flushed with saline. It was explored with pickups, hemostat and no purulent pockets is noted. No malodor noted. Some dusky gangrenous tissue noted. The proximal aspect of the dorsal incision was a little more dusky. Betadine soaked quarter inch iodoform packing inserted to the 2 openings. Betadine soaked 4x4's, dry gauze, venu/kerlix and Tu was applied to the left foot. The infection looks much improved to the foot but there is more gangrene and looks more dusky. Will discussed the plan of care with cardiology to see if they will consider revascularization this admission since the creatinine is down from 5-2.6. 1. NPO now 2. Continue IV antibiotics: Cefepime, Vanco 3. Plan for surgery 08/26/2020 @1400: Left foot irrigation and debridement, delayed primary closure 4. Refer to Cardiology for revasc for LLE 5. Podiatry for dressing change in am 6. Will likely need either SNF or HHC services at d/c: antibiotics and dressing changes
--- NOTE | 2020-08-26 08:33 | HMH.ACPN2 ---
Internal Medicine - PN: Subj *Date: 08/26/20 *Time: 08:33 Interval history: Patient feels good, is in good spirits, no pain. Does have concerns about a spot at the upper part of the gluteal cleft. Exam Vital signs and Labs for Last 24 Hours: Temp Pulse Resp BP Pulse Ox 98.3 F 66 18 145/65 H 96 08/26/20 03:55 08/26/20 03:55 08/26/20 03:55 08/26/20 03:55 08/26/20 03:55 Laboratory Results - last 24 hr 08/25/20 06:35: POC Glucose 286 H 08/25/20 11:16: POC Glucose 273 H 08/25/20 14:31: Vancomycin Trough 19.7 H 08/25/20 16:09: POC Glucose 262 H 08/25/20 20:09: POC Glucose 220 H 08/26/20 05:27: POC Glucose 203 H 08/26/20 06:51: WBC 8.7, RBC 3.59 L, Hgb 10.4 L, Hct 31.5 L, MCV 87.6, MCH 29.0, MCHC 33.1, RDW 13.8, Plt Count 359, MPV 8.2, Neut % (Auto) 72.3, Lymph % (Auto) 18.3, Hitchcock % (Auto) 3.8, Eos % (Auto) 4.8, Baso % (Auto) 0.8, Neut # (Auto) 6.3, Lymph # (Auto) 1.6, Hitchcock # (Auto) 0.3, Eos # (Auto) 0.4, Baso # (Auto) 0.1 08/26/20 06:51: Sodium 136, Potassium 4.0, Chloride 104, Carbon Dioxide 22, Anion Gap 14.0, BUN 61 H, Creatinine 2.60 H D, Estimated Creat Clear 55, Estimated GFR 25 L, Est GFR ( Amer) 31 L D, Glucose 203 H, Calcium 8.2 L, C-Reactive Protein 107.0 H I & O for Last 24 hours: Intake & Output 08/23/20 08/24/20 08/25/20 08/26/20 11:59 11:59 11:59 11:59 Intake Total 960 / 960 2154 / 2154 3630 / 3630 3512 / 3512 Output Total 1000 / 1000 4050 / 4050 3600 / 3600 3400 / 3400 Balance -40 / -40 -1896 / -1896 112 / 112 Weight 292 lb 6 oz 287 lb 9 oz 286 lb 2 oz 286 lb 4 oz Microbiology Reports for the Last 24 Hours: Microbiology 08/22/20 15:15 Toe,Left Great Gram Stain - Final 08/22/20 15:15 Toe,Left Great Abscess Culture - Preliminary 08/22/20 15:15 Toe,Left Great Surgical Biopsy Culture - Preliminary 08/22/20 15:15 Toe,Left Great Surgical Biopsy Culture - Final Serratia marcescens Narrative: Alert, oriented. Lungs have good air movement and are clear, heart rate regular. Abdomen soft, extremity exam per podiatry. At the top of the gluteal cleft there is a pilonidal cyst that is tender, but not indurated or reddened, no drainage noted. Patient does note that occasionally it does drain a white substance, he has noticed it for several months. Assessment and Plan (1) Diabetes mellitus with neuropathy Status: Acute Category: Medical Code(s): E11.40 - Type 2 diabetes mellitus with diabetic neuropathy, unspecified (2) Cellulitis of left lower extremity Status: Acute Category: Medical Code(s): L03.116 - Cellulitis of left lower limb (3) Diabetic ulcer of left foot associated with diabetes mellitus due to underlying condition, with fat layer exposed Status: Acute Qualifiers: Diabetic foot ulcer location: toe Qualified Code(s): E08.621 - Diabetes mellitus due to underlying condition with foot ulcer; L97.522 - Non-pressure chronic ulcer of other part of left foot with fat layer exposed Category: Medical Code(s): E08.621 - Diabetes mellitus due to underlying condition with foot ulcer; L97.522 - Non-pressure chronic ulcer of other part of left foot with fat layer exposed (4) Gas gangrene Status: Acute Category: Medical Code(s): A48.0 - Gas gangrene (5) Acute on chronic kidney failure Status: Acute Qualifiers: Chronic kidney disease stage: stage 4 (severe) Category: Medical Code(s): N17.9 - Acute kidney failure, unspecified; N18.9 - Chronic kidney disease, unspecified (6) Obesity, Class II, BMI 35-39.9 Status: Chronic Category: Medical Code(s): E66.9 - Obesity, unspecified (7) Pilonidal cyst Status: Acute Category: Medical Code(s): L05.91 - Pilonidal cyst without abscess - Assessment and plan all Dx Assessment and Plan for all problems:: Podiatry notes reviewed, personally discussed case with inside sales assistant, back to the OR today to try to get a better surgical wound re
[2020-08-26 08:49] LABS: Erythrocyte Sedimentation Rate > 140 mm/hr (0-20)
--- NOTE | 2020-08-26 10:57 | HMH.ACPN ---
Internal Medicine - PN: Subj *Date: 08/26/20 *Time: 10:57 Exam Vital signs and Labs for Last 24 Hours: Temp Pulse Resp BP Pulse Ox 98.3 F 66 18 145/65 H 96 08/26/20 03:55 08/26/20 03:55 08/26/20 03:55 08/26/20 03:55 08/26/20 08:00 Laboratory Results - last 24 hr 08/25/20 06:35: POC Glucose 286 H 08/25/20 11:16: POC Glucose 273 H 08/25/20 14:31: Vancomycin Trough 19.7 H 08/25/20 16:09: POC Glucose 262 H 08/25/20 20:09: POC Glucose 220 H 08/26/20 05:27: POC Glucose 203 H 08/26/20 06:51: WBC 8.7, RBC 3.59 L, Hgb 10.4 L, Hct 31.5 L, MCV 87.6, MCH 29.0, MCHC 33.1, RDW 13.8, Plt Count 359, MPV 8.2, Neut % (Auto) 72.3, Lymph % (Auto) 18.3, Mcdonough % (Auto) 3.8, Eos % (Auto) 4.8, Baso % (Auto) 0.8, Neut # (Auto) 6.3, Lymph # (Auto) 1.6, Mcdonough # (Auto) 0.3, Eos # (Auto) 0.4, Baso # (Auto) 0.1, ESR > 140 H 08/26/20 06:51: Sodium 136, Potassium 4.0, Chloride 104, Carbon Dioxide 22, Anion Gap 14.0, BUN 61 H, Creatinine 2.60 H D, Estimated Creat Clear 55, Estimated GFR 25 L, Est GFR ( Amer) 31 L D, Glucose 203 H, Calcium 8.2 L, C-Reactive Protein 107.0 H I & O for Last 24 hours: Intake & Output 08/23/20 08/24/20 08/25/20 08/26/20 23:59 23:59 23:59 23:59 Intake Total 2214 / 2214 2110 / 2110 3570 / 3570 1822 / 1822 Output Total 1650 / 2250 4550 / 5150 3850 / 3850 1200 / 1200 Balance 564 / -36 -2440 / -3040 -280 / -280 622 / 622 Weight 132.619 kg 130.436 kg 129.784 kg 129.841 kg Microbiology Reports for the Last 24 Hours: Microbiology 08/22/20 15:15 Toe,Left Great - Final 08/22/20 15:15 Toe,Left Great - Final 08/22/20 15:15 Toe,Left Great - Final 08/22/20 15:15 Toe,Left Great Surgical Biopsy Culture - Preliminary 08/22/20 15:15 Toe,Left Great Gram Stain - Final 08/22/20 15:15 Toe,Left Great Abscess Culture - Preliminary 08/22/20 15:15 Toe,Left Great Surgical Biopsy Culture - Final Serratia marcescens Assessment and Plan (1) Diabetes mellitus with neuropathy Status: Acute Category: Medical Code(s): E11.40 - Type 2 diabetes mellitus with diabetic neuropathy, unspecified (2) Cellulitis of left lower extremity Status: Acute Category: Medical Code(s): L03.116 - Cellulitis of left lower limb (3) Diabetic ulcer of left foot associated with diabetes mellitus due to underlying condition, with fat layer exposed Status: Acute Qualifiers: Diabetic foot ulcer location: toe Qualified Code(s): E08.621 - Diabetes mellitus due to underlying condition with foot ulcer; L97.522 - Non-pressure chronic ulcer of other part of left foot with fat layer exposed Category: Medical Code(s): E08.621 - Diabetes mellitus due to underlying condition with foot ulcer; L97.522 - Non-pressure chronic ulcer of other part of left foot with fat layer exposed (4) Gas gangrene Status: Acute Category: Medical Code(s): A48.0 - Gas gangrene (5) Acute on chronic kidney failure Status: Acute Qualifiers: Chronic kidney disease stage: stage 4 (severe) Category: Medical Code(s): N17.9 - Acute kidney failure, unspecified; N18.9 - Chronic kidney disease, unspecified (6) Obesity, Class II, BMI 35-39.9 Status: Chronic Category: Medical Code(s): E66.9 - Obesity, unspecified The patient's infection will respond to the chosen ABx?: Yes Is the patient receiving the right drug, dose, and route?: Yes Could a more targeted ABx be ordered?: No
--- NOTE | 2020-08-26 11:57 | HMH.PNCARD ---
Subjective Date: 08/26/20 Time: 11:30 Principal diagnosis: LLE cellulitis, gas gangrene Interval history: This is a 59-year-old male who was admitted to the hospital with cellulitis of the left lower extremity. The patient did have an abnormal RUY but runoff was deferred due to a significantly elevated renal function at 4.30. His creatinine is down to 2.[address] Green evaluated the patient this morning and he had dusky gangrenous tissue noted. This had worsened. The proximal aspect of the dorsal incision was more dusky than it had been before, the infection looks like it had improved but the gangrene has worsened as well as the foot looking more dusky. Dr. Arroyo was contacted this morning and since the patient's creatinine is down to 2.6 he will be taken and for left lower extremity runoff today to see if there is any vascular disease that can be fixed to help promote better circulation down his left lower extremity. The patient denies any chest pain or pressure this morning. He denies any shortness of breath or edema. He denies any fever, chills, nausea, vomiting, diarrhea, PND or orthopnea. He states the pain in his left foot has improved as well. Exam Vital signs and Labs for Last 24 Hours: Temp Pulse Resp BP Pulse Ox 98.3 F 70 18 159/70 H 97 08/26/20 08:00 08/26/20 08:00 08/26/20 08:00 08/26/20 08:00 08/26/20 08:00 Laboratory Results - last 24 hr 08/25/20 06:35: POC Glucose 286 H 08/25/20 11:16: POC Glucose 273 H 08/25/20 14:31: Vancomycin Trough 19.7 H 08/25/20 16:09: POC Glucose 262 H 08/25/20 20:09: POC Glucose 220 H 08/26/20 05:27: POC Glucose 203 H 08/26/20 06:51: WBC 8.7, RBC 3.59 L, Hgb 10.4 L, Hct 31.5 L, MCV 87.6, MCH 29.0, MCHC 33.1, RDW 13.8, Plt Count 359, MPV 8.2, Neut % (Auto) 72.3, Lymph % (Auto) 18.3, [place] % (Auto) 3.8, Eos % (Auto) 4.8, Baso % (Auto) 0.8, Neut # (Auto) 6.3, Lymph # (Auto) 1.6, [place] # (Auto) 0.3, Eos # (Auto) 0.4, Baso # (Auto) 0.1, ESR > 140 H 08/26/20 06:51: Sodium 136, Potassium 4.0, Chloride 104, Carbon Dioxide 22, Anion Gap 14.0, BUN 61 H, Creatinine 2.60 H D, Estimated Creat Clear 55, Estimated GFR 25 L, Est GFR ( Amer) 31 L D, Glucose 203 H, Calcium 8.2 L, C-Reactive Protein 107.0 H I & O for Last 24 hours: Intake & Output 08/23/20 08/24/20 08/25/20 08/26/20 23:59 23:59 23:59 23:59 Intake Total 2214 / 2214 2110 / 2110 3570 / 3570 1942 / 1942 Output Total 1650 / 2250 4550 / 5150 3850 / 3850 1200 / 1200 Balance 564 / -36 -2440 / -3040 -280 / -280 742 / 742 Weight 292 lb 6 oz 287 lb 9 oz 286 lb 2 oz 286 lb 4 oz Microbiology Reports for the Last 24 Hours: Microbiology 08/22/20 15:15 Toe,Left Great - Final 08/22/20 15:15 Toe,Left Great - Final 08/22/20 15:15 Toe,Left Great - Final 08/22/20 15:15 Toe,Left Great Surgical Biopsy Culture - Preliminary - Constitutional no acute distress, obese - *Routine HEENT Exam Head: Present: normocephalic, atraumatic Eye: Present: EOMI, PERRL ENT: Present: mucous membranes moist - *Routine Neck Exam Present: supple, full ROM, normal carotid upstroke. Absent: JVD, carotid bruit, lymphadenopathy - *Routine Respiratory Exam Present: CTA bilaterally - *Routine Cardiovascular Exam Present: RRR, Normal S1, Normal S2. Absent: murmur - *Routine Abdominal Exam Present: soft, normoactive bowel sounds. Absent: tenderness, distended - *Routine Extremities Exam Present: full ROM, pulses intact (Except he is a right leg amputee and the left lower extremity is in a dressing and I cannot feel pulses), normal capillary refill (Sluggish in the left lower extremity). Absent: cyanosis, clubbing, edema - *Routine Skin Exam Present: erythema, warm, gangrene (Left lower extremity). Absent: intact, rash - *Routine Neurological Exam Present: alert, oriented X3, CN II-XII intact. Absent: sensory deficit, motor deficit Progress Note: A&P (1) Gas gangrene Status: Acute (2) Cellulit
[2020-08-26 12:17] LABS: POC Glucose,Bedside 260 (70-110)
--- NOTE | 2020-08-26 12:30 | PC.NURSE ---
PT TAKEN DOWN TO INSIDE SALES PROFESSIONAL FOR REPERFUSSION
--- NOTE | 2020-08-26 12:34 | HMH.GSCON ---
*Admission Date: 08/22/20 *Reason for consult:: Pilonidal cyst *History of present illness: Patient is a 59-year-old diabetic male with chronic kidney disease and chronic arterial occlusive disease. He has undergone previous right below-knee amputation. He has been followed in the podiatry clinic as an outpatient for left great toe cellulitis which failed outpatient therapy. He was admitted and underwent toe amputation on 08/22/2020. Patient had complained this morning to his primary care provider of concerning tender area near his tailbone. He states that this has been present for some time and he had previously expressed whitish pus from the area. However recently has become more sore and tender to him. It has changed somewhat in character. Surgical consultation was obtained for pilonidal cyst with abscess Review of Systems - Review of Systems Review of systems:: pertinent systems reviewed and negative unless documented below - *Neurologic Reports abnormal walking, Reports tingling/numbness/burning sensations, Denies abnormal hearing, Denies behavioral changes [facility] History I have reviewed the patient's past medical history: Yes Medical History: Reports:: Cerebrovascular Accident, Diabetes Mellitus Type 2, Hypertension, Renal Insufficiency Denies:: Cancer, MRSA *Have you ever received a pneumonia vaccine?: Yes *Have you received a flu vaccine this season?: No Other Medical History: Reports: Sinus Problems Anesthesia experience/problems:: nac Other Surgeries: Yes: No Previous Surgery, Colonoscopy, Other Amputation: Yes (Right BKA 4 years ago ) Fractures: No - *Social History Last grade of school completed: Some college Smoking Status: Never smoker Alcohol Intake: never Alcohol Intake Frequency:: other Substance Use Type: denies use *Occupational Status:: retired Housing: house *Travel in the last 8 weeks: None Family Hx:: Cancer Meds Home Medications Medication Instructions Recorded Confirmed Type carvedilol 25 mg tablet 25 mg PO BID 07/04/18 08/22/20 History fluticasone propionate 50 1 spray INTRANASAL DAILY 07/04/18 08/22/20 History mcg/actuation nasal spray,suspension furosemide 40 mg tablet 40 mg PO DAILY 07/04/18 08/22/20 History losartan 100 mg tablet 100 mg PO DAILY 07/04/18 08/22/20 History lovastatin 20 mg tablet 20 mg PO DAILY 07/04/18 08/22/20 History metolazone 2.5 mg tablet 2.5 mg PO DAILY 07/04/18 08/22/20 History phenytoin sodium extended 100 mg 100 mg PO TID 07/04/18 08/22/20 History capsule dapagliflozin 10 mg tablet 10 mg PO DAILY tab 05/22/20 08/22/20 History insulin detemir U-100 100 unit/mL 24 unit SQ HS ml 05/22/20 08/22/20 History (3 mL) subcutaneous pen verapamil 360 mg 24 hr 360 mg PO DAILY cap 05/22/20 08/22/20 History capsule,extended release clindamycin HCl 300 mg capsule 300 mg PO TID 14 Days #42 cap 08/14/20 08/22/20 Rx ciprofloxacin HCl 500 mg tablet 500 mg PO BID 14 Days #28 tab 08/17/20 08/22/20 Rx Aspirin [Aspirin 81mg EC Tab] 81 mg PO DAILY 08/22/20 08/22/20 History Allergies Allergy/AdvReac Type Severity Reaction Status Date / Time No Known Allergies Allergy Verified 08/22/20 11:35 Exam Vital signs and Labs for Last 24 Hours: Temp Pulse Resp BP Pulse Ox 98.3 F 70 18 159/70 H 97 08/26/20 08:00 08/26/20 08:00 08/26/20 08:00 08/26/20 08:00 08/26/20 08:00 Laboratory Results - last 24 hr 08/25/20 14:31: Vancomycin Trough 19.7 H 08/25/20 16:09: POC Glucose 262 H 08/25/20 20:09: POC Glucose 220 H 08/26/20 05:27: POC Glucose 203 H 08/26/20 06:51: WBC 8.7, RBC 3.59 L, Hgb 10.4 L, Hct 31.5 L, MCV 87.6, MCH 29.0, MCHC 33.1, RDW 13.8, Plt Count 359, MPV 8.2, Neut % (Auto) 72.3, Lymph % (Auto) 18.3, [place] % (Auto) 3.8, Eos % (Auto) 4.8, Baso % (Auto) 0.8, Neut # (Auto) 6.3, Lymph # (Auto) 1.6, [place] # (Auto) 0.3, Eos # (Auto) 0.4, Baso # (Auto) 0.1, ESR > 140 H 08/26/20 06:51: Sodium 136, Potassium 4.0, Chloride 104, Carbon Dioxide 22, Anion Ga
--- NOTE | 2020-08-26 13:57 | SUR.PHASEII ---
1340 OR MATTHEW Huang RN INSTRUCTED [facility] TO BRING PT. TO PRE-OP PER DR. SAMAYOA FOLLOWING RUN-OFF. PATIENT TRANSPORTED TO PRE-OP REPORT GIVEN TO MATTHEW Huang ADVISED PATIENT IS ON BEDREST FOR 2 HOURS AND TO MANAGE GROIN SITE.
--- NOTE | 2020-08-26 14:00 | PC.NURSE ---
REPORT RECEIVED FROM MONY IN OBGYN SPECIALIST. PT HAD GOTTEN A RUN OFF WITH RYAN AND CHAITANYA ON BOARD. OBGYN SPECIALIST THEN HANDED HIM OVER TO SURGERY. NO STENTS PLACED
--- NOTE | 2020-08-26 14:40 | HMH.PHACONS ---
- Pharmacy Consult Date: 08/26/20 Time: 14:40 Referring provider: DR. SHELBY Reason for Consult:: VANCOMYCIN TROUGH LEVEL Allergies and ADEs:: Allergies Allergy/AdvReac Type Severity Reaction Status Date / Time No Known Allergies Allergy Verified 08/22/20 11:35 Home Medications:: Home Medications Medication Instructions Recorded Confirmed Type carvedilol 25 mg tablet 25 mg PO BID 07/04/18 08/22/20 History fluticasone propionate 50 1 spray INTRANASAL DAILY 07/04/18 08/22/20 History mcg/actuation nasal spray,suspension furosemide 40 mg tablet 40 mg PO DAILY 07/04/18 08/22/20 History losartan 100 mg tablet 100 mg PO DAILY 07/04/18 08/22/20 History lovastatin 20 mg tablet 20 mg PO DAILY 07/04/18 08/22/20 History metolazone 2.5 mg tablet 2.5 mg PO DAILY 07/04/18 08/22/20 History phenytoin sodium extended 100 mg 100 mg PO TID 07/04/18 08/22/20 History capsule dapagliflozin 10 mg tablet 10 mg PO DAILY tab 05/22/20 08/22/20 History insulin detemir U-100 100 unit/mL 24 unit SQ HS ml 05/22/20 08/22/20 History (3 mL) subcutaneous pen verapamil 360 mg 24 hr 360 mg PO DAILY cap 05/22/20 08/22/20 History capsule,extended release clindamycin HCl 300 mg capsule 300 mg PO TID 14 Days #42 cap 08/14/20 08/22/20 Rx ciprofloxacin HCl 500 mg tablet 500 mg PO BID 14 Days #28 tab 08/17/20 08/22/20 Rx Aspirin [Aspirin 81mg EC Tab] 81 mg PO DAILY 08/22/20 08/22/20 History Height: 1.91 m Weight: 130 kg Laboratory Results:: Laboratory Results - last 24 hr 08/25/20 14:31: Vancomycin Trough 19.7 H 08/25/20 16:09: POC Glucose 262 H 08/25/20 20:09: POC Glucose 220 H 08/26/20 05:27: POC Glucose 203 H 08/26/20 06:51: WBC 8.7, RBC 3.59 L, Hgb 10.4 L, Hct 31.5 L, MCV 87.6, MCH 29.0, MCHC 33.1, RDW 13.8, Plt Count 359, MPV 8.2, Neut % (Auto) 72.3, Lymph % (Auto) 18.3, [place] % (Auto) 3.8, Eos % (Auto) 4.8, Baso % (Auto) 0.8, Neut # (Auto) 6.3, Lymph # (Auto) 1.6, [place] # (Auto) 0.3, Eos # (Auto) 0.4, Baso # (Auto) 0.1, ESR > 140 H 08/26/20 06:51: Sodium 136, Potassium 4.0, Chloride 104, Carbon Dioxide 22, Anion Gap 14.0, BUN 61 H, Creatinine 2.60 H D, Estimated Creat Clear 55, Estimated GFR 25 L, Est GFR ( Amer) 31 L D, Glucose 203 H, Calcium 8.2 L, C-Reactive Protein 107.0 H 08/26/20 11:13: POC Glucose 260 H Medical History: Reports:: Cerebrovascular Accident, Diabetes Mellitus Type 2, Hypertension, Renal Insufficiency Denies:: Cancer, MRSA Assessment and Plan (1) Gas gangrene Status: Acute Category: Medical Code(s): A48.0 - Gas gangrene (2) Cellulitis of left lower extremity Status: Acute Category: Medical Code(s): L03.116 - Cellulitis of left lower limb (3) Diabetes mellitus with neuropathy Status: Acute Category: Medical Code(s): E11.40 - Type 2 diabetes mellitus with diabetic neuropathy, unspecified (4) Diabetic ulcer of left foot associated with diabetes mellitus due to underlying condition, with fat layer exposed Status: Acute Qualifiers: Diabetic foot ulcer location: toe Qualified Code(s): E08.621 - Diabetes mellitus due to underlying condition with foot ulcer; L97.522 - Non-pressure chronic ulcer of other part of left foot with fat layer exposed Category: Medical Code(s): E08.621 - Diabetes mellitus due to underlying condition with foot ulcer; L97.522 - Non-pressure chronic ulcer of other part of left foot with fat layer exposed (5) Acute on chronic kidney failure Status: Acute Qualifiers: Chronic kidney disease stage: stage 4 (severe) Category: Medical Code(s): N17.9 - Acute kidney failure, unspecified; N18.9 - Chronic kidney disease, unspecified (6) Obesity, Class II, BMI 35-39.9 Status: Chronic Category: Medical Code(s): E66.9 - Obesity, unspecified - Assessment and plan all Dx Assessment and Plan for all problems:: BASED ON VANCOMYCIN TROUGH LEVEL YESTERDAY AT 24-HOURS POST INFUSION, RECOMMEND CHANGING VANCOMYCIN 2500 MG IV FROM Q48H TO Q36H.
--- NOTE | 2020-08-26 15:14 | PC.NURSE ---
REPORT RECEIVED FROM Cara DOBBINS RN ONLY LOCAL GIVEN, DRESSING INCLUDE GRAPH CLEAR VASELINE GAUZE, 4X4, & KERLEX AND JAMARCUS BANDAGE.
--- NOTE | 2020-08-26 15:24 | HMH.OPNOTE ---
Date of procedure: 08/26/20 Pre-op Diagnosis:: 1. Left foot gas gangrene 2. Left foot PAD 3. Left foot cellulitis 4. Left diabetic ulcer Post-op Diagnosis:: Same Procedure performed:: 1. Left foot irrigation and debridement 2. Left foot deep wound cultures x2 3. Left foot delayed primary closure 4. Left application of Integra bilayer mesh wound graft matrix Surgeon:: Meghna Green DPM Anesthesia: local (10cc 0.5% marcaine plain) Estimated blood loss (mL): 10 Clinical Note:: Mr. Oh is a 59-year-old diabetic male who was admitted and underwent left foot incision and drainage with a hallux and first metatarsal head resection 08/22/2020. Patient has been having Betadine packing dressing changes. His white count at the time of admission was 19.9 which has decreased to 8.7. Patient did have runoff procedure by Dr. Arroyo today 08/26/2020 to improve blood flow. Discussed return to the OR to debride the nonviable necrotic gangrenous tissue, wash out deep tissue with antibiotics and partially close good tissue. Discussed with the patient risks of infection, nonhealing to the area. Patient understands that there is a chance that the toes can migrate to fill the gap or the foot may change shape after surgery. Patient also understands that they could have wound healing complications including delayed healing and infection. We discussed that if the wound does not heal, it is possible that they may need a more proximal amputation and could result in further loss of digits, loss of partial foot or loss of leg. We discussed the risks and benefits in great detail. Other surgical risks include: prolonged pain and swelling, further infection requiring oral or IV antibiotics, delay in healing of soft tissue or bone, nerve or blood vessel damage, CRPS/RSD, DVT, anesthesia complications, and even . All questions answered. Patient verbalized understanding. Consent obtained. Medical and cardiac clearance per Dr. Elizabeth and Dr. Arroyo. Office wound culture, left toe 08/15/20 and intra-op wound culture 08/22/20: Serratia marcescens, currently on Cefepime and Vanco. Operative findings:: Previous right below-knee amputation. The edema and localized erythema was much improved. No ascending cellulitis appreciated past the midfoot. Left foot had gangrenous necrotic changes with skin sloughing. Minimal malodor. Sutures intact to the previous incision and drainage and amputation site. Serosanguineous drainage expressed and cultured. The remaining first metatarsal bone appeared hard with no purulence or obvious signs of osteomyelitis. No tracking of the infection up the tendons. Calcified blood vessels noted to the open amputation site. More bleeding noted than at the last surgery. Post debridement after delayed primary closure there was no purulence or signs of infection noted prior to graft application, the wound was full-thickness 100% granular tissue with healthy bleeding and measured 7 x 6.5 x 5.0 cm. Operative note:: On this date and time patient was deemed an appropriate surgical candidate. With informed consent signed, the patient was taken to the operating theater. The patient was positioned supine. No anesthesia was induced. No tourniquet used. The left lower extremity was prepped and draped in normal sterile fashion. Pre-op left midfoot block given with 10 cc 0.5% marcaine plain. Left foot irrigation and deep debridement of non-viable soft tissue, foot deep wound cultures x2: Attention was directed to the previous amputation site where sutures were noted. All sutures were removed without complication. The tissue along the dorsal incision site was dusky and thayer with underlying great and black tissue. It was sharply excisionally debrided with a 15 blade and forceps full-thickness to the level of good healthy bleeding. The tissue over the dorsal medial first metatarsal remaining bone was also necrotic. There were some serosanguineous drainage, less than 5 cc
--- NOTE | 2020-08-26 15:35 | PC.NURSE ---
PT RETURNED TO ROOM 203 AT THIS TIME. PT A&O X4 VSS. GROIN DRESSING C/D/I & PROCEDURAL DRESSING ON L FOOT C/D/I. PT DENIES ANY PAIN. WILL CONTINUE TO OBSERVE.
[2020-08-26 17:16] LABS: POC Glucose,Bedside 199 (70-110)
[2020-08-26 21:50] LABS: POC Glucose,Bedside 297 (70-110)
[2020-08-27] VITALS (19 sets, daily range): BP systolic 116–155; BP diastolic 53–85; PULSE 62–77; RESP 14–22; TEMP 36.4–37; O2SAT 96–99; BMI 35.5
--- NOTE | 2020-08-27 04:50 | PC.NURSE ---
Pt has slept throughout this shift, Pt is A&O x4, BLT CTA, Bowel sounds present in all 4 quadrants, Pt is on RA, IV restart completed this shift. Pt amputation of the Lt great toe dressing C/D/I. Pt denies SOA, headache, N/V. Pt does have non-pitting edema of the LLE
[2020-08-27 06:15] LABS: POC Glucose,Bedside 262 (70-110)
--- NOTE | 2020-08-27 06:38 | HMH.DCSUM ---
General - General Admission date:: 08/22/20 Discharge date: 08/27/20 HPI HPI: 59-year-old white male, who suffers from diabetes, vascular disease, chronic kidney disease, stage IV, and previous right below-knee amputation because of foot cellulitis, who has been following with podiatry clinic over the past couple of weeks because of cellulitis of the left great toe. Unfortunately has not responded to outpatient therapy after a minor injury while walking, and he noted yesterday that a blister on the tip of the toe burst which relieved some of his pressure sensations but he had spreading redness. Seen in podiatry clinic today, felt to have gas gangrene into the great toe and is admitted to hospital for IV antibiotics and resection of the great toe. Objective Vital signs: Temp Pulse Resp BP Pulse Ox 98.5 F 64 19 140/74 98 08/27/20 04:00 08/27/20 04:00 08/27/20 04:00 08/27/20 04:00 08/27/20 04:00 Results Labs on day of discharge: Labs from last 24 hours 08/27/20 08/26/20 08/26/20 06:03 21:04 16:47 WBC RBC Hgb Hct MCV MCH MCHC RDW Plt Count MPV Neut % (Auto) Lymph % (Auto) [place] % (Auto) Eos % (Auto) Baso % (Auto) Neut # (Auto) Lymph # (Auto) [place] # (Auto) Eos # (Auto) Baso # (Auto) ESR Sodium Potassium Chloride Carbon Dioxide Anion Gap BUN Creatinine Estimated Creat Clear Estimated GFR Est GFR ( Amer) Glucose POC Glucose 262 H 297 H 199 H Calcium C-Reactive Protein 08/26/20 08/26/20 08/26/20 11:13 06:51 06:51 WBC 8.7 RBC 3.59 L Hgb 10.4 L Hct 31.5 L MCV 87.6 MCH 29.0 MCHC 33.1 RDW 13.8 Plt Count 359 MPV 8.2 Neut % (Auto) 72.3 Lymph % (Auto) 18.3 [place] % (Auto) 3.8 Eos % (Auto) 4.8 Baso % (Auto) 0.8 Neut # (Auto) 6.3 Lymph # (Auto) 1.6 [place] # (Auto) 0.3 Eos # (Auto) 0.4 Baso # (Auto) 0.1 ESR > 140 H Sodium 136 Potassium 4.0 Chloride 104 Carbon Dioxide 22 Anion Gap 14.0 BUN 61 H Creatinine 2.60 H D Estimated Creat Clear 55 Estimated GFR 25 L Est GFR ( Amer) 31 L D Glucose 203 H POC Glucose 260 H Calcium 8.2 L C-Reactive Protein 107.0 H Preliminary micro results at discharge 08/22/20 15:15 Surgical Biopsy Culture - Preliminary Toe,Left Great 08/22/20 15:15 Abscess Culture - Preliminary Toe,Left Great DS: Diagnosis - Discharge Diagnosis (1) Gas gangrene Status: Acute (2) Cellulitis of left lower extremity Status: Acute (3) Diabetes mellitus with neuropathy Status: Acute (4) Diabetic ulcer of left foot associated with diabetes mellitus due to underlying condition, with fat layer exposed Status: Acute (5) Acute on chronic kidney failure Status: Acute (6) Obesity, Class II, BMI 35-39.9 Status: Chronic Discharge Plan - Patient Discharge Instructions ACTIVITY: Limited activity DIET: continue same diet Patient Instructions: DI for Cellulitis -- Adult, DI for Debridement of a Wound, Infection, or Burn, Chronic Kidney Disease, DI for Diabetic Foot Ulcer, DI for Surgical Site Infection - Follow up Plan Home Medications: Home Medications Medication Instructions Recorded Confirmed Type carvedilol 25 mg tablet 25 mg PO BID 07/04/18 08/22/20 History fluticasone propionate 50 1 spray INTRANASAL DAILY 07/04/18 08/22/20 History mcg/actuation nasal spray,suspension furosemide 40 mg tablet 40 mg PO DAILY 07/04/18 08/22/20 History losartan 100 mg tablet 100 mg PO DAILY 07/04/18 08/22/20 History lovastatin 20 mg tablet 20 mg PO DAILY 07/04/18 08/22/20 History metolazone 2.5 mg tablet 2.5 mg PO DAILY 07/04/18 08/22/20 History phenytoin sodium extended 100 mg 100 mg PO TID 07/04/18 08/22/20 History capsule dapagliflozin 10 mg tablet 10 mg PO DAILY tab 05/22/20 08/22/20 Hi
[2020-08-27 07:17] LABS: Chloride 108 mmol/L (98-107)
[2020-08-27 07:18] LABS: Potassium 4.3 mmoL/L (3.5-5.1); Sodium 137 mmol/L (136-145)
[2020-08-27 07:19] LABS: Basophils # 0.1 K/mm3 (0-0.2); Basophils % 0.6 % (0.1-2.0); Eosinophils # 0.4 K/mm3 (0.0-0.4); Eosinophils % 4.6 % (0.1-12.0); Hematocrit 32.2 % (42.0-52.0); Hemoglobin 10.6 g/dL (14.1-18.0); Lymphocytes # 1.3 K/mm3 (0.7-4.5); Lymphocytes % 14.9 % (10-50); Mean Corpuscular Hemoglobin 29.1 pg (27.0-31.2); Mean Corpuscular Volume 88.3 fl (80-94); Mean Platelet Volume 8.1 fl (7.4-10.4); Monocytes # 0.3 K/mm3 (0.1-1.0); Monocytes % 3.3 % (1.7-9.3); Neutrophils # 6.9 K/mm3 (1.8-7.8); Neutrophils % 76.7 % (37.0-80.0); Platelet Count 378 K/mm3 (142-424); Red Blood Count 3.64 M/mm3 (4.60-6.20); Red Cell Distribution Width 13.7 % (11.5-17.5)
[2020-08-27 07:21] LABS: Anion Gap 11.3 mEq/L (5-15); Blood Urea Nitrogen 52 mg/dl (9-20); Calcium 8.3 mg/dl (8.4-10.2); Carbon Dioxide 22 mmol/L (22.0-30.0); Creatinine Clearance Estimated 59 mL/min (50-200); Estimated Glomerular Filt Rate 28 ml/min (>60); GFR (African American) 33 ML/MIN (>60); Glucose 255 mg/dl (74-100)
--- NOTE | 2020-08-27 08:09 | HMH.ORTHPN ---
Subjective Date: 08/27/20 Time: 07:50 Principal diagnosis: LLE cellulitis, gas gangrene Interval history: Patient is resting comfortably in the bed, complains of pain to these sacral region. Denies pain to the left foot. Patient denies nausea vomiting, fever chills, shortness of breath and chest pain. PN: Obj Ex Vital signs: Temp Pulse Resp BP Pulse Ox 98.5 F 64 19 140/74 98 08/27/20 04:00 08/27/20 04:00 08/27/20 04:00 08/27/20 04:00 08/27/20 04:00 - Constitutional no acute distress - Routine HEENT Exam Head: Present: normocephalic Eye: Present: EOMI ENT: Present: mucous membranes moist - Routine Neck Exam Present: supple - Routine Respiratory Exam Absent: respiratory distress - Routine Cardiovascular Exam Present: RRR - Routine Abdominal Exam Present: soft - Detailed Lower Extremity Exam Top foot image: 1 - Left hallux, 1st met head amputated. There is graft in place over the 1st metatarsal shaft. There are sutures clean dry and intact to the proximal and distal aspect of the amputation site. There is an Integra graft secured with jena. Skin appears healthy with no evidence of necrotic gangrenous tissue. No malodor, purulence, drainage or ascending cellulitis noted. No pain to the left foot. Overall the edema and erythema is resolving. - Routine Skin Exam Present: dry, warm, scars, wounds. Absent: gangrene Progress Note: A&P (1) Gas gangrene Status: Acute (2) Cellulitis of left lower extremity Status: Acute (3) Diabetes mellitus with neuropathy Status: Acute (4) Diabetic ulcer of left foot associated with diabetes mellitus due to underlying condition, with fat layer exposed Status: Acute (5) Acute on chronic kidney failure Status: Acute (6) Obesity, Class II, BMI 35-39.9 Status: Chronic Assessment and Plan for All Diagnoses:: Sx: 08/26/20, s/p left foot irrigation and debridement, deep wound cultures x2, foot delayed primary closure, application of Integra bilayer mesh wound graft matrix 08/22/20, S/p foot I&D, hallux amputation, 1st metatarsal head resection, deep foot debridement of non-viable soft tissue, foot derotational skin flap POD # 1/5 Wound culture, left toe 08/15/20: Serratia marcescens (patient taking Clindamycin 300 mg TID, Cipro 500 mg BID x 14 days Labs, 08/14/20: wbc 11.2, ESR 101, CRP 262.4, creatinine 3.6, gfr 17, glucose 206 Labs, 08/22/20: wbc 19.9, ESR >140, CRP 269, creatinine 4.10, gfr 15, glucose 141, Ha1c 9.8% Labs, 08/23/20: wbc 19.8, ESR >140, CRP 283, creatinine 5.0, gfr 12, bun 106, glucose 316 Labs, 08/26/20: wbc 8.7, crp 107, creatinine 2.6, bun 61, glucose 203, vanco trough 19.7 08/22/20, Intra-op left foot deep wound culture: Serratia marcescens Intra-op left hallux bone culture: GPC Left hallux bone pathology: pending Left first metatarsal margin bone culture, bone pathology: pending 08/26/20, Intra-op left foot deep wound culture: gram stain GPC, GNR Patient is to maintain dressing clean dry and intact. Elevate on 1-2 pillows. Continue antibiotics: Cefepime and vancomycin. Transition from IV to oral Levofloxacin. Non weight bearing to the left lower extremity with boot and DME assistance (wheelchair). Ok to put heel down in boot for transfers. If dressing gets wet: change outer layer (adaptic over graft, 4x4s, Kerlix, soft roll, Tu). The graft will need to be maintained clean dry and intact x1 week. Patient will follow up outpatient in one week for podiatry, Wednesday09/03/20 @1000
--- NOTE | 2020-08-27 08:48 | HMH.ACPN2 ---
Internal Medicine - PN: Subj *Date: 08/27/20 *Time: 10:35 Interval history: Patient overall did well overnight. Remains afebrile. Redebridement with good response by podiatry. Dressing changed this morning by podiatry, was able to see wound, it is healthy and beefy appearing with minimal bleeding. Patient denies any chest pain, nausea, vomiting. Still has pain in his sacral region where he has his abscess/pilonidal cyst. Surgery planning to take patient for drainage of this today. Exam Vital signs and Labs for Last 24 Hours: Temp Pulse Resp BP Pulse Ox 98.4 F 65 18 155/59 H 98 08/27/20 08:00 08/27/20 08:00 08/27/20 08:00 08/27/20 08:00 08/27/20 08:00 Laboratory Results - last 24 hr 08/26/20 06:51: ESR > 140 H 08/26/20 11:13: POC Glucose 260 H 08/26/20 16:47: POC Glucose 199 H 08/26/20 21:04: POC Glucose 297 H 08/27/20 06:03: POC Glucose 262 H 08/27/20 06:57: WBC 9.0, RBC 3.64 L, Hgb 10.6 L, Hct 32.2 L, MCV 88.3, MCH 29.1, MCHC 33.0, RDW 13.7, Plt Count 378, MPV 8.1, Neut % (Auto) 76.7, Lymph % (Auto) 14.9, [place] % (Auto) 3.3, Eos % (Auto) 4.6, Baso % (Auto) 0.6, Neut # (Auto) 6.9, Lymph # (Auto) 1.3, [place] # (Auto) 0.3, Eos # (Auto) 0.4, Baso # (Auto) 0.1 08/27/20 06:57: Sodium 137, Potassium 4.3, Chloride 108 H, Carbon Dioxide 22, Anion Gap 11.3, BUN 52 H, Creatinine 2.40 H, Estimated Creat Clear 59, Estimated GFR 28 L, Est GFR ( Amer) 33 L, Glucose 255 H, Calcium 8.3 L I & O for Last 24 hours: Intake & Output 08/24/20 08/25/20 08/26/2021 23:59 23:59 23:59 23:59 Intake Total 0 / 2110 3570 / 3570 3082 / 3082 1541 / 1541 Output Total 4550 / 5150 3850 / 3850 1540 / 1540 1100 / 1100 Balance -2440 / -3040 -280 / -280 1542 / 1542 441 / 441 Weight 130.436 kg 129.784 kg 130 kg 129.756 kg Microbiology Reports for the Last 24 Hours: Microbiology 08/26/20 14:30 Foot,Left Gram Stain - Final 08/22/20 15:15 Toe,Left Great - Final 08/22/20 15:15 Toe,Left Great - Final 08/22/20 15:15 Toe,Left Great - Final 08/22/20 15:15 Toe,Left Great Surgical Biopsy Culture - Preliminary - Constitutional no acute distress, obese - *Routine HEENT Exam Head: Present: normocephalic Eye: Present: EOMI, PERRL ENT: Present: mucous membranes moist - *Routine Neck Exam Present: supple. Absent: lymphadenopathy - *Routine Respiratory Exam Present: CTA bilaterally - *Routine Cardiovascular Exam Present: RRR - *Routine Abdominal Exam Present: soft, normoactive bowel sounds. Absent: tenderness - *Routine Extremities Exam Absent: cyanosis, clubbing Comments: See podiatry note for full foot exam, left great toe status post amputation. Surgical wound clean dry and intact, healthy edges of wound/incision. No purulent drainage. No surrounding erythema or warmth. - *Routine Skin Exam Present: warm. Absent: rash - *Routine Neurological Exam Present: alert, oriented X3 Assessment and Plan (1) Gas gangrene Status: Acute Category: Medical Code(s): A48.0 - Gas gangrene (2) Cellulitis of left lower extremity Status: Acute Category: Medical Code(s): L03.116 - Cellulitis of left lower limb (3) Diabetes mellitus with neuropathy Status: Acute Category: Medical Code(s): E11.40 - Type 2 diabetes mellitus with diabetic neuropathy, unspecified (4) Diabetic ulcer of left foot associated with diabetes mellitus due to underlying condition, with fat layer exposed Status: Acute Qualifiers: Diabetic foot ulcer location: toe Qualified Code(s): E08.621 - Diabetes mellitus due to underlying condition with foot ulcer; L97.522 - Non-pressure chronic ulcer of other part of left foot with fat layer exposed Category: Medical Code(s): E08.621 - Diabetes mellitus due to underlying condition with foot ulcer; L97.522 - Non-pressure chronic ulcer of other part of left foot with fat layer exposed (5) Acute on chronic kidney failure Status: Acute Qualifiers:
--- NOTE | 2020-08-27 09:36 | PC.NURSE ---
Pt silviano at this time, to surgery department.
--- NOTE | 2020-08-27 12:30 | P.OP_ITS ---
Date of procedure: 08/27/20 Pre-op Diagnosis:: Pilonidal abscess Post-op Diagnosis:: Inflamed gluteal inclusion cyst Procedure performed:: Excision of gluteal cyst Surgeon:: Adria Silveira MD Anesthesia: CONNOR Estimated blood loss (mL): 7 Clinical Note:: Patient is a 59-year-old diabetic male with chronic kidney disease and chronic arterial occlusive disease. He has undergone previous right below-knee amputation. He has been followed in the podiatry clinic as an outpatient for left great toe cellulitis which failed outpatient therapy. He was admitted and underwent toe amputation on 08/22/2020. Patient had complained on the morning of 08/26/20 to his primary care provider of concerning tender area near his tailbone. He states that this has been present for some time and he had previously expressed whitish pus from the area. However recently has become more sore and tender to him. It has changed somewhat in character. Surgical consultation was obtained for pilonidal cyst with abscess. Operative findings:: Consistent with inflamed inclusion cyst without abscess. Operative note:: Patient was taken to the operating room. He was positioned in left lateral position. The area was prepped and draped in the standard surgical fashion. Close inspection revealed a skin punctum and the overlying skin. Attempt was made to probe this with a blunt probe. It did not track. Limited incision was made around the skin punctum. Careful dissection was carried down to what appeared to be a well-circumscribed cyst. Dissection was carried out around the cyst wall. The incision was extended superiorly and inferiorly. A well- circumscribed intact cyst coming consistent with an inclusion type sebaceous cyst was encountered. This was dissected free from surrounding tissues intact. This was sent off as specimen with the overlying skin ellipse. The wound was irrigated. Local anesthetic was infiltrated. Hemostasis was achieved with electrocautery. Wound was partially closed with several interrupted 3-0 chromic sutures. Central portion of the wound was packed with 1/4 inch plain packing gauze and covered with clean dry sterile dressing. Condition: stable Disposition: PACU Specimens:: Gluteal cyst Complications:: None immediately apparent
--- NOTE | 2020-08-27 12:53 | HMH.ANESI ---
[facility] Anesthesia Record Part I Intake, IV Amount: 700 Estimated blood loss (mL): 10 Urine output (mL): 75 Blood Pressure: 145/85 SaO2: 98 Pulse Rate: 77 Respiratory Rate: 22 Temperature: 97.6 F Patient is:: Awake Stable to PACU at:: 12:54
--- NOTE | 2020-08-27 13:06 | PC.NURSE ---
Pt arrived back to floor at this time.
[2020-08-27 13:34] LABS: POC Glucose,Bedside 214 (70-110)
--- NOTE | 2020-08-27 14:30 | HMH.ANESII ---
[facility] Anesthesia Record Part II Discharge Time: 12:59 Destination: Medical Surgical Department PACU nurse assessment reviewed?: Yes Patient Condition:: Good Anesthesia Complications:: None Swallowing reflex intact?: Yes Cyanosis?: No Blood Pressure: 146/59 Pulse Rate: 62 Temperature: 98 F Mental Status: Alert & Oriented Pain level:: 0 Nausea and/or vomitting:: None Intake, IV Amount: 0
--- NOTE | 2020-08-27 14:49 | PC.NURSE ---
1258 Report received from Rowdy Pham RN in PACU. Pt stable and without any pain. 1310 Pt to room 203, bed locked and in lowest position with side rails up x2. Call light within reach. Pt denies any pain/discomfort at this time.
--- NOTE | 2020-08-27 15:42 | PC.NURSE ---
1540 RN reassessment completed at this time. Pt remains A&O X4. Pt is s/p I & D of right buttock today, post op VS WNL. Pt recently had a large, watery bowel movement on the bedpan that required changing of his dressing. Packing remains intact, 4x4 and tape reapplied to area, tolerated well by pt. Pt denies any pain/discomfort to site. Lung sounds CTA, abd soft and nontender with BS active in all quads. IV patent and infusing without difficulty. Call light within reach, will continue to monitor.
[2020-08-27 17:05] LABS: POC Glucose,Bedside 268 (70-110)
[2020-08-27 22:21] LABS: POC Glucose,Bedside 218 (70-110)
[2020-08-28] VITALS: BP 123/54; PULSE 64; RESP 18; TEMP 37.3; O2SAT 99
[2020-08-28 04:00] VITALS: BP 131/72; PULSE 67; RESP 14; TEMP 36.9; O2SAT 97
--- NOTE | 2020-08-28 04:27 | PC.NURSE ---
Pt is A&Ox4. Lungs sounds CTA. Active bowel sounds in all 4 quads. No BM noted this shift. Dressing from I&D remains CDI. Dressing from amputation remains CDI. Pt has c/o no pain this shift, requiring no PRN pain meds. Pt had a basin bath this shift sitting at the side of bed. PIV remains intact and continues to infuse NS @ 123 ml/hr. IS at bedside table, IS @ best 1750. No other acute changes or complaints at this time.
[2020-08-28 05:00] VITALS: BMI 36.1
[2020-08-28 06:42] LABS: POC Glucose,Bedside 198 (70-110)
[2020-08-28 07:25] LABS: Basophils # 0.1 K/mm3 (0-0.2); Basophils % 1.1 % (0.1-2.0); Chloride 113 mmol/L (98-107); Eosinophils # 0.5 K/mm3 (0.0-0.4); Eosinophils % 5.4 % (0.1-12.0); Hematocrit 31.6 % (42.0-52.0); Hemoglobin 10.1 g/dL (14.1-18.0); Lymphocytes # 1.4 K/mm3 (0.7-4.5); Lymphocytes % 15.9 % (10-50); Mean Corpuscular HGB Conc 32.1 g/dL (31.8-35.4); Mean Corpuscular Hemoglobin 28.6 pg (27.0-31.2); Mean Corpuscular Volume 89.1 fl (80-94); Mean Platelet Volume 8.2 fl (7.4-10.4); Monocytes # 0.3 K/mm3 (0.1-1.0); Monocytes % 3.6 % (1.7-9.3); Neutrophils # 6.6 K/mm3 (1.8-7.8); Platelet Count 367 K/mm3 (142-424); Potassium 4.2 mmoL/L (3.5-5.1); Red Blood Count 3.55 M/mm3 (4.60-6.20); Red Cell Distribution Width 14.5 % (11.5-17.5); Sodium 138 mmol/L (136-145)
[2020-08-28 07:28] LABS: Alanine Aminotransferase 35 U/L (12-78); Albumin Level 2.8 g/dl (3.5-5.0); Albumin/Globulin Ratio 0.8 (1.1-1.8); Alkaline Phosphatase 131 U/L (38-126); Anion Gap 8.2 mEq/L (5-15); Aspartate Amino Transferase 32 U/L (17-59); Bilirubin,Total 0.3 mg/dl (0.2-1.3); Blood Urea Nitrogen 46 mg/dl (9-20); Calcium 8.2 mg/dl (8.4-10.2); Carbon Dioxide 21 mmol/L (22.0-30.0); Creatinine Clearance Estimated 63 mL/min (50-200); Estimated Glomerular Filt Rate 29 ml/min (>60); GFR (African American) 35 ML/MIN (>60); Globulin 3.4 g/dL (1.3-3.2); Glucose 210 mg/dl (74-100); Total Protein,Serum 6.2 g/dl (6.3-8.2)
[2020-08-28 07:34] LABS: C-Reactive Protein 55.1 mg/L (0-4)
[2020-08-28 08:00] VITALS: BP 106/86; PULSE 71; RESP 18; TEMP 36.4; O2SAT 98
--- NOTE | 2020-08-28 08:24 | HMH.DCSUM ---
General - General Admission date:: 08/22/20 Discharge date: 08/28/20 HPI HPI: 59-year-old white male, who suffers from diabetes, vascular disease, chronic kidney disease, stage IV, and previous right below-knee amputation because of foot cellulitis, who has been following with podiatry clinic over the past couple of weeks because of cellulitis of the left great toe. Unfortunately has not responded to outpatient therapy after a minor injury while walking, and he noted yesterday that a blister on the tip of the toe burst which relieved some of his pressure sensations but he had spreading redness. Seen in podiatry clinic today, felt to have gas gangrene into the great toe and is admitted to hospital for IV antibiotics and resection of the great toe. Hospital Course Hospital Course: Patient was admitted, podiatry notes reviewed, consult appreciated. Patient underwent initial debridement and amputation of the left hallux. Patient did well, had initially an acute kidney injury, this was treated with fluids and this resolved and creatinine went back to baseline at 2.3. Cardiology was consulted for runoff of extremity, determined that there was no large vessel disease but significant microvascular disease with no intervention needed that would benefit patient's circulation. Patient did well with antibiotics, podiatry took him back to the OR 2 days ago for revision of the excision/amputation site, was able to close the wound little bit more and avoid ongoing packing. He tolerated the procedure well. Cultures revealed Serratia organism and antibiotic coverage was narrowed. Patient also had an inclusion cyst on his upper buttock, and this was excised by surgery, wound packing was recommended but no significant infection was found. This morning the patient was doing well, eating and drinking well, tolerating pain well with Tylenol. Plan will be to discharge home with home health, he will need dressing changes to the buttock area for the inclusion cyst every other day, he will not need dressing changes on the foot until he comes back to see podiatry next week. We will cover with Levaquin every other day for a week as well as Flagyl twice daily for the inclusion cyst area. He requires home health for dressing changes, ambulation assistance, and needs a BMP and CBC in 3 days. Please note that I performed a [id number] evaluation on patient today, he requires home health services because of difficulty leaving home because of right-sided lower amputation and his current inability to bear weight on the left leg. Objective Vital signs: Temp Pulse Resp BP Pulse Ox 98.4 F 67 14 131/72 97 08/28/20 04:00 08/28/20 04:00 08/28/20 04:00 08/28/20 04:00 08/28/20 04:00 no acute distress - *Routine HEENT Exam Head: Present: normocephalic Eye: Present: EOMI, PERRL ENT: Present: mucous membranes moist - *Routine Neck Exam Present: supple - *Routine Respiratory Exam Present: CTA bilaterally - *Routine Cardiovascular Exam Present: RRR - *Routine Abdominal Exam Present: soft, normoactive bowel sounds. Absent: tenderness - *Routine Extremities Exam Absent: cyanosis Comments: Left lower extremity wrapped in bandage and [place] per podiatry. - Routine Back/Spine/Pelvis Exam Comments: Wound on right lower back clean and dry, packing in place - *Routine Skin Exam Present: warm. Absent: rash - Detailed Eye Exam Eyelids: Bilateral normal inspection Results Labs on day of discharge: Labs from last 24 hours 08/28/20 08/28/20 08/28/20 07:00 07:00 06:29 WBC 9.0 RBC 3.55 L Hgb 10.1 L Hct 31.6 L MCV 89.1 MCH 28.6 MCHC 32.1 RDW 14.5 Plt Count 367 MPV 8.2 Neut % (Auto) 74.0 Lymph % (Auto) 15.9 [place] % (Auto) 3.6 Eos % (Auto) 5.4 Baso % (Auto) 1.1 Neut # (Auto) 6.6 Lymph # (Auto) 1.4 [place] # (Auto) 0.3 Eos # (Auto) 0.5 H Baso # (Auto) 0.1
--- NOTE | 2020-08-28 10:57 | PC.NURSE ---
pt unable to walk d/t being non weight bearing with left foot surgery. pt would benefit from a wheelchair at his residence.
--- NOTE | 2020-08-28 11:02 | HMH.GSPN ---
Subjective Narrative: Patient states that the area feels better but is somewhat sore. Progress Note: A&P (1) Gas gangrene Status: Resolved (2) Cellulitis of left lower extremity Status: Acute (3) Diabetes mellitus with neuropathy Status: Chronic (4) Diabetic ulcer of left foot associated with diabetes mellitus due to underlying condition, with fat layer exposed Status: Acute (5) Acute on chronic kidney failure Status: Acute (6) Obesity, Class II, BMI 35-39.9 Status: Chronic (7) Inclusion cyst Status: Acute Assessment and Plan for All Diagnoses:: Patient being discharged today. Outpatient once daily dressing changes. Follow-up in the office in a couple weeks. Exam Vital signs and Labs for Last 24 Hours: Temp Pulse Resp BP Pulse Ox 97.6 F 71 18 106/86 L 98 08/28/20 08:00 08/28/20 08:00 08/28/20 08:00 08/28/20 08:00 08/28/20 08:00 Laboratory Results - last 24 hr 08/27/20 09:43: POC Glucose 214 H 08/27/20 16:47: POC Glucose 268 H 08/27/20 21:36: POC Glucose 218 H 08/28/20 06:29: POC Glucose 198 H 08/28/20 07:00: WBC 9.0, RBC 3.55 L, Hgb 10.1 L, Hct 31.6 L, MCV 89.1, MCH 28.6, MCHC 32.1, RDW 14.5, Plt Count 367, MPV 8.2, Neut % (Auto) 74.0, Lymph % (Auto) 15.9, [place] % (Auto) 3.6, Eos % (Auto) 5.4, Baso % (Auto) 1.1, Neut # (Auto) 6.6, Lymph # (Auto) 1.4, [place] # (Auto) 0.3, Eos # (Auto) 0.5 H, Baso # (Auto) 0.1 08/28/20 07:00: Sodium 138, Potassium 4.2, Chloride 113 H, Carbon Dioxide 21 L, Anion Gap 8.2, BUN 46 H, Creatinine 2.30 H, Estimated Creat Clear 63, Estimated GFR 29 L, Est GFR ( Amer) 35 L, Glucose 210 H, Calcium 8.2 L, Total Bilirubin 0.3, AST 32, ALT 35, Alkaline Phosphatase 131 H, C-Reactive Protein 55.1 H D, Total Protein 6.2 L, Albumin 2.8 L, Globulin 3.4 H, Albumin/Globulin Ratio 0.8 L I & O for Last 24 hours: Intake & Output 08/25/20 08/26/20 08/27/20 08/28/20 11:59 11:59 11:59 11:59 Intake Total 3630 / 3630 3632 / 3632 2681 / 2681 1420 / 1420 Output Total 3600 / 3600 3400 / 3400 1440 / 1440 2075 / 2075 Balance 232 / 232 1241 / 1241 -655 / -655 Weight 286 lb 2 oz 286 lb 4 oz 286 lb 1 oz 290 lb 8 oz Microbiology Reports for the Last 24 Hours: Microbiology 08/26/20 14:30 Foot,Left Gram Stain - Final 08/26/20 14:30 Foot,Left Wound Culture - Preliminary NO GROWTH AFTER 24 HOURS 08/22/20 15:15 Toe,Left Great Surgical Biopsy Culture - Preliminary Staphylococcus haemolyticus - *Routine Skin Exam Comments: Incision is clean. Minor serous drainage from packing
--- NOTE | 2020-08-28 11:30 | SW/DCPLANNER ---
SET UP HOME HEALTH FOR DSG CHANGES AND WHEELCHAIR FOR THIS PATIENT... CHUYCEZAR HAS AGREED TO TAKE THE REFERRAL AND SEE PATIENT EVERY OTHER DAY FOR HIS DSG CHANGES....HIS WHEELCHAIR WILL BE DELIVERED TO HIS ROOM PRIOR TO DISCHARGE AND DR CHANDLER IS HAVING SOMEONE FROM THE [facility] TO TAKE THIS PATIENT HOME...
[2020-08-28 12:00] VITALS: BP 151/62; PULSE 65; RESP 18; TEMP 36.7; O2SAT 97
== END 2020-08-28 14:09 | disposition home health service (06) | DRG 255 ==
PROVIDERS: Internal Medicine; Internal Medicine Adolescent Medicine; Podiatrist; Surgery; Admitting Provider Internal Medicine Adolescent Medicine; PCP Internal Medicine Adolescent Medicine; Visit Provider Internal Medicine Adolescent Medicine
PROC: 0Y6Q0Z1 Detachment at Left 1st Toe, High, Open Approach (ICD-10-PCS; CPT 28825; principal; 2020-08-22 14:30)
PROC: B4181ZZ Fluoroscopy of Bilateral Renal Arteries using Low Osmolar Contrast (ICD-10-PCS; principal; 2020-08-26 11:15)
PROC: 0HRNXK3 Replacement of Left Foot Skin with Nonautologous Tissue Substitute, Full Thickness, External Approach (ICD-10-PCS; CPT 15275; principal; 2020-08-26 14:00)
PROC: 0HB8XZZ Excision of Buttock Skin, External Approach (ICD-10-PCS; principal; 2020-08-27 11:30)
DX: E11.52 Type 2 diabetes mellitus with diabetic peripheral angiopathy with gangrene (principal); A48.0 Gas gangrene; N18.4 Chronic kidney disease, stage 4 (severe); L03.116 Cellulitis of left lower limb; M86.172 Other acute osteomyelitis, left ankle and foot; I70.262 Atherosclerosis of native arteries of extremities with gangrene, left leg; E11.40 Type 2 diabetes mellitus with diabetic neuropathy, unspecified; Z79.4 Long term (current) use of insulin; E11.22 Type 2 diabetes mellitus with diabetic chronic kidney disease; L97.522 Non-pressure chronic ulcer of other part of left foot with fat layer exposed; L72.3 Sebaceous cyst; I12.9 Hypertensive chronic kidney disease with stage 1 through stage 4 chronic kidney disease, or unspecified chronic kidney disease; I77.1 Stricture of artery; I70.245 Atherosclerosis of native arteries of left leg with ulceration of other part of foot; I70.1 Atherosclerosis of renal artery; Z79.899 Other long term (current) drug therapy
CPT/HCPCS: 28825; 15275; 97597; 36252; 36246; 36415; 71045; 73630; 75710; 80048; 80053; 80202; 82962; 83036; 83735; 85007; 85025; 85651; 86140; 86328; 87070; 87075; 87077; 87186; 87205; 88304; 88305; 88307; 88311; 93005; 93306; 93923; 99152; 99153; C1725; C1769; C9363; J0692; J1644; J1956; J2405; J3370; Q9966

== ENCOUNTER → 2020-08-30 14:08 | Outpatient (CLI) | payer MEDICARE, OTHER, SELFPAY ==
[2020-08-30 14:36] LABS: Basophils # 0.1 K/mm3 (0-0.2); Basophils % 1.2 % (0.1-2.0); Eosinophils # 0.5 K/mm3 (0.0-0.4); Eosinophils % 6.1 % (0.1-12.0); Hematocrit 33.8 % (42.0-52.0); Hemoglobin 11.1 g/dL (14.1-18.0); Lymphocytes # 1.9 K/mm3 (0.7-4.5); Lymphocytes % 22.6 % (10-50); Mean Corpuscular HGB Conc 32.9 g/dL (31.8-35.4); Mean Corpuscular Hemoglobin 28.6 pg (27.0-31.2); Mean Corpuscular Volume 86.9 fl (80-94); Mean Platelet Volume 7.7 fl (7.4-10.4); Monocytes # 0.4 K/mm3 (0.1-1.0); Monocytes % 4.4 % (1.7-9.3); Neutrophils # 5.4 K/mm3 (1.8-7.8); Neutrophils % 65.7 % (37.0-80.0); Platelet Count 415 K/mm3 (142-424); Red Blood Count 3.89 M/mm3 (4.60-6.20); Red Cell Distribution Width 13.9 % (11.5-17.5); White Blood Count 8.2 K/mm3 (4.8-10.8)
[2020-08-30 14:50] LABS: Anion Gap 11.3 mEq/L (5-15); Blood Urea Nitrogen 43 mg/dl (9-20); Carbon Dioxide 22 mmol/L (22.0-30.0); Chloride 112 mmol/L (98-107); Estimated Glomerular Filt Rate 31 ml/min (>60); GFR (African American) 37 ML/MIN (>60); Glucose 142 mg/dl (74-100); Potassium 4.3 mmoL/L (3.5-5.1); Sodium 141 mmol/L (136-145)
== END ==
PROVIDERS: Visit Provider Internal Medicine Adolescent Medicine
DX: E11.40 Type 2 diabetes mellitus with diabetic neuropathy, unspecified (principal); Z79.4 Long term (current) use of insulin
CPT/HCPCS: 80048; 83036; 85025

== ENCOUNTER → 2020-09-03 11:32 | Outpatient (CLI) | payer MEDICARE, OTHER, SELFPAY ==
[2020-09-03 12:54] LABS: Basophils # 0.1 K/mm3 (0-0.2); Basophils % 1.3 % (0.1-2.0); Eosinophils # 0.5 K/mm3 (0.0-0.4); Eosinophils % 4.4 % (0.1-12.0); Hematocrit 35.7 % (42.0-52.0); Hemoglobin 11.5 g/dL (14.1-18.0); Lymphocytes # 2.9 K/mm3 (0.7-4.5); Lymphocytes % 26.4 % (10-50); Mean Corpuscular HGB Conc 32.3 g/dL (31.8-35.4); Mean Corpuscular Hemoglobin 28.5 pg (27.0-31.2); Mean Corpuscular Volume 88.3 fl (80-94); Mean Platelet Volume 8.4 fl (7.4-10.4); Monocytes # 0.7 K/mm3 (0.1-1.0); Monocytes % 6.5 % (1.7-9.3); Neutrophils # 6.6 K/mm3 (1.8-7.8); Neutrophils % 61.3 % (37.0-80.0); Platelet Count 459 K/mm3 (142-424); Red Blood Count 4.04 M/mm3 (4.60-6.20); Red Cell Distribution Width 14.5 % (11.5-17.5); White Blood Count 10.8 K/mm3 (4.8-10.8)
[2020-09-03 13:05] LABS: Chloride 111 mmol/L (98-107); Potassium 4.7 mmoL/L (3.5-5.1); Sodium 143 mmol/L (136-145)
[2020-09-03 13:07] LABS: Blood Urea Nitrogen 43 mg/dl (9-20); Estimated Glomerular Filt Rate 28 ml/min (>60); GFR (African American) 33 ML/MIN (>60)
[2020-09-03 13:08] LABS: Alanine Aminotransferase 23 U/L (12-78); Albumin Level 3.7 g/dl (3.5-5.0); Albumin/Globulin Ratio 0.9 (1.1-1.8); Alkaline Phosphatase 131 U/L (38-126); Anion Gap 13.7 mEq/L (5-15); Aspartate Amino Transferase 32 U/L (17-59); Bilirubin,Total 0.3 mg/dl (0.2-1.3); Calcium 9.3 mg/dl (8.4-10.2); Carbon Dioxide 23 mmol/L (22.0-30.0); Total Protein,Serum 7.7 g/dl (6.3-8.2)
[2020-09-03 13:14] LABS: C-Reactive Protein 25.6 mg/L (0-4)
[2020-09-03 13:18] LABS: Glucose 47 mg/dl (74-100)
[2020-09-03 13:28] LABS: Erythrocyte Sedimentation Rate 116 mm/hr (0-20)
== END ==
PROVIDERS: Visit Provider Podiatrist
DX: Z98.890 Other specified postprocedural states (principal); E11.40 Type 2 diabetes mellitus with diabetic neuropathy, unspecified; Z79.4 Long term (current) use of insulin; L03.116 Cellulitis of left lower limb
CPT/HCPCS: 36415; 80053; 85025; 85651; 86140

== ENCOUNTER 2020-09-05 11:10 | Emergency (ER) | payer MEDICARE, OTHER, SELFPAY ==
--- NOTE | 2020-09-05 11:12 | HMH.EDCPR ---
ED Disposition Clinical Impression: Cardiac arrest Disposition: Condition on Discharge: - Critical Care Critical Care Time: Yes Attestation: On , the high probability of a clinically significant, sudden or life threatening deterioration of the following system(s) required my full and direct attention, intervention and personal management. The time I documented below is in addition to time spent performing reported procedures but includes the following listed in this critical care notation. Total Critical Care Time: 30 Vital system(s) involved:: Circulatory Failure, Central Nervous System, Metabolic Failure, Respiratory Failure, Renal Failure, Shock (Hemorrhage), Shock (Septic) My critical care processes included: Assessment & monitoring of V/S, Initial and Re-exams, Data Review/Interpretation, Coordinating Care, Medication Orders and management, Documentation [facility] Code Documentation - Arrest Information Outside of Hospital The Code Document Section documentation for [id number] Vaughn Oh was populated with data that defaulted in from the reed repairer in the Code Assessment on f_Reg Service Date] to provide within this report, the status and treatment of the patient in the ED during a Code. This documentation will be supplemented with my direct findings within the body of the report. Date Treatment Initiated: 09/05/20 Treatment Initiated By: EMS Location of Arrest: home Arrest Witnessed: Yes Estimated Down Time: 40 min prior to arrival, treatment wiht EMS approx 20 min prior to arrival - ALS Code Inititation ALS Initiated By: EMS ALS Type: ACLS - Circulation Initial Cardiac Rhythm: Asystole - Oxygenation Oxygen Delivery Method: Endotracheal Tube - Labs Fingerstick Blood Glucose: 400 - Code End Time Code Ended: 11:05 Patient Successfully Resuscitated: No Reason Code Ended: - Efforts Terminated Family Members Present During Code: No - Patient Expiration Date: 09/05/20 Expiration Time: 11:05 Pronounced by: Byron Chavez MD Medical Decision Making - Medical Records Medical records reviewed: Yes: I reviewed the patient's medical records. - David Inquiry Pt receiving controlled substance: No Medical Decision Narrative: Patient arrived pulseless. ACLS protocol continued here with compressions, several rounds of epinephrine. Patient already in asystole for 20 minutes prior to arrival. Time of called at 1105 when patient continued to be pulseless on several pulse checks and no cardiac motion visualized with bedside ultrasound. He was appropriately intubated with ventilated breath sounds. Fingerstick in the 400s. No apparent reversible cause of . CPR HPI - General Chief Complaint: Cardiac Arrest/CPR Stated Complaint: code blue Time Seen by Provider: 09/05/20 11:12 Mode of Arrival: EMS Source of Information: EMS Limitations: Physical Limitations - History of Present Illness HPI narrative: This is a 59-year-old male with a past medical history significant for hypertension, hyperlipidemia, diabetes who presents to the emergency department as a code 500. Patient went to the bathroom at home and passed out when he came out of the bathroom, witnessed by son. EMS was called approximately 40 minutes prior to arrival. They found an initial rhythm of asystole and intubated the patient, started ACLS protocol with multiple rounds of epinephrine. He remained in asystole and has been in this rhythm for approximately 20 minutes prior to arrival. Fingerstick in the 400s. Patient had vascular procedure yesterday - BLE angiography, no stents placed. - Related Data Home Medications Medication Instructions Recorded Confirmed carvedilol 25 mg tablet 25 mg PO BID 07/04/18 09/03/20 fluticasone propionate 50 1 spray INTRANASAL DAILY 07/04/18 09/03/20 mcg/actuation nasal spray,suspension losartan 100 mg tablet 100 mg PO DAILY 07/04/18 09/03/20 lovastatin 20 mg tab
--- NOTE | 2020-09-05 11:12 | PC.NURSE ---
1057: Pt arrived via EMS asysole CPR in progress, 3 rounds of epi given DIRECTOR STYLE per ems, 7F ET 20 @ lip in place before arrival per ems, 20 L AC per ems, 20 right AC inserted per Vinay RN, 1L NS administered 1100: pulse check, no pulse, epi given per Oneil Jessica, medic 1102: pulse check, no pulse aystole on monitor 1103: epi given per Oneil Jessica 1105: pulse check, no pulse asystole on monitor, no cardiac activity via US. [address] Scott ANGELES MD
--- NOTE | 2020-09-05 11:14 | PC.NURSE ---
Contacted Bartolo Genao
[2020-09-05 11:20] VITALS: RESP 0; O2SAT 0; BMI 41.2
--- NOTE | 2020-09-05 11:29 | PC.NURSE ---
Jackie Perez from [facility] states that body can be released to home at this time
--- NOTE | 2020-09-05 11:33 | PC.NURSE ---
speaking with family
--- NOTE | 2020-09-05 11:50 | PC.NURSE ---
Dr Elizabeth speaking with family at this time.
--- NOTE | 2020-09-05 11:57 | PC.NURSE ---
Artis Genao speaking with family at this time.
--- NOTE | 2020-09-05 12:15 | PC.NURSE ---
several family members at bedside.
[2020-09-05 14:40] VITALS: BP 0/0; PULSE 0; RESP 0; TEMP -17.7; TEMP 0
== END 2020-09-05 14:41 | disposition expired ==
PROVIDERS: Emergency Provider Emergency Medicine
DX: I46.9 Cardiac arrest, cause unspecified (principal); I10 Essential (primary) hypertension; E78.5 Hyperlipidemia, unspecified; E11.9 Type 2 diabetes mellitus without complications; Z79.899 Other long term (current) drug therapy
CPT/HCPCS: 96374; 99291